=== PATIENT | female | born 1950 | race Caucasian/White ===

== ENCOUNTER 2021-11-13 08:33 | Outpatient (CLI) | payer MEDICARE, MEDICAID, SELFPAY | END 2021-11-13 08:34 | disposition home or self-care (01) | PROVIDERS: Family Provider Family Medicine; PCP Family Medicine; Visit Provider Urology | DX: N20.0 Calculus of kidney (principal); R31.0 Gross hematuria | CPT/HCPCS: G0463; 74018; 99203 ==

== ENCOUNTER 2021-12-31 15:21 | Outpatient (CLI) | payer MEDICARE, MEDICAID, SELFPAY ==
--- NOTE | 2021-12-31 15:00 | CT_ITS ---
WS: [id number] CT ABDOMEN PELVIS TECHNIQUE: Noncontrast CT of the abdomen and contrast-enhanced CT of the abdomen and pelvis with amita nal and sagittal reformatted images. CLINICAL INFORMATION: GROSS HEMATURIA COMPARISON: 019 DLP: 4043.[address] scans at [facility] use at least one of these dose optimization techniques: automated e xposure control; mA and/or kV adjustment per patient size (includes targeted exams where dose is matc hed to clinical indication); or iterative reconstruction. FINDINGS: Bilateral renal cortical atrophy. Atrophic LEFT kidney. Calculus in the RIGHT renal pelvis measuring 8 mm. Mild dilatation of the renal pelvis. Diffuse urothelial enhancement in the RIGHT renal pelvis a nd ureter. Mild RIGHT ureterectasis. Increased soft tissue density in the distal RIGHT ureter suspici ous for TCC.Recommend further evaluation with ureteroscopy. This is new from 2019. This extends over approximately 6 cm. RIGHT calyceal tip calculus measuring 5 mm. No hydronephrosis in the LEFT kidney. Normal LEFT ureter. Diffuse fatty infiltration liver. Mild hepatomegaly. Normal portal vein and splenic vein. Fatty atrop hy of the pancreas. Mild dilatation common bile duct likely physiologic postcholecystectomy. This is unchanged from previous. Small low-attenuation pancreatic lesions ventral body and tail of the pancre as measuring 7-8 mm nonspecific but suspicious IPMN. Dilatation of the pancreatic duct. Splenic arter y calcification. Normal spleen. Lung bases are well aerated. Noncalcified nodule RIGHT lower lobe measuring 4 mm. Adrenal Glands are normal. Postoperative changes gastric sleeve. Normal caliber abdominal aorta. No abdominal or pelvic lymphadenopathy. Normal LEFT renal excretion on the delayed images. Normal sigmoid colon. No evidence of high-grade small or large bowel obstruction. Wide mouth LEFT angy tral abdominal wall hernia similar to previous with herniated bowel. No evidence of obstruction. Sclerosis in both femoral head suspicious for avascular necrosis. CT/CT abdomen pelvis wo/w [id number] IMPRESSION: 1. Increased attenuation diffuse filling defect involving the distal 6 cm RIGH T ureter extending to the UVJ. Diffuse urothelial enhancement in the RIGHT uret er and renal pelvis. Findings suspicious for TCC. Recommend ureteroscopy for fu rther evaluation. 2. 8 mm calculus in the RIGHT renal pelvis. 5 mm RIGHT calyceal tip calculi. 3. Normal LEFT renal parenchymal enhancement and excretion. No hydronephrosis in the LEFT kidney. 4. 4 mm noncalcified RIGHT lower lobe nodule. Recommend 6 month follow-up ches t CT. 5. 7-8 mm low-attenuation lesions in the ventral pancreas nonspecific but susp icious for IPMN. Dilatation pancreatic duct. This can be followed up in [address] abdomen pelvis with contrast or MRI/MRCP without and with contrast.
[2021-12-31] MEDS: iohexol 350 mg/mL 100 mL Btl IV (16:33)
== END 2021-12-31 15:22 | disposition home or self-care (01) ==
LOC: RAD 15:21
PROVIDERS: Family Provider Family Medicine; PCP Family Medicine; Visit Provider Nurse Practitioner Family
DX: R31.9 Hematuria, unspecified (principal); N20.0 Calculus of kidney; R91.1 Solitary pulmonary nodule; K86.89 Other specified diseases of pancreas
CPT/HCPCS: 74178

== ENCOUNTER → 2022-01-01 08:03 | Outpatient (BNVA) | payer MEDICARE, MEDICAID, SELFPAY | PROVIDERS: Family Provider Family Medicine; PCP Family Medicine; Visit Provider Urology | DX: N20.9 Urinary calculus, unspecified (principal); N30.80 Other cystitis without hematuria | CPT/HCPCS: 52000; 87077; 87086; 87186; 88112; 99213 ==

== ENCOUNTER → 2022-03-11 15:29 | Outpatient (BNVA) | payer MEDICARE, MEDICAID, SELFPAY | PROVIDERS: Family Provider Family Medicine; PCP Internal Medicine; Visit Provider Nurse Practitioner Family | DX: N30.80 Other cystitis without hematuria (principal); R31.0 Gross hematuria; N20.9 Urinary calculus, unspecified | CPT/HCPCS: 99213 ==

== ENCOUNTER 2022-06-11 05:39 | Emergency (ER) | payer MEDICARE, MEDICAID, SELFPAY ==
[2022-06-11 05:40] VITALS: BP 188/81; PULSE 62; RESP 18; TEMP 36.6; O2SAT 97; BMI 32.5
--- NOTE | 2022-06-11 06:01 | ECG_ITS ---
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 Measurements Intervals [place] Rate: 63 P: 64 MA: 150 QRS: -16 QRSD: 149 T: 25 QT: 431 QTc: 442 Interpretive Statements SINUS RHYTHM RIGHT BUNDLE BRANCH BLOCK [120+ ms QRS DURATION, UPRIGHT V1, 40+ ms S IN I/aVL/V4/V5/V6] Compared to ECG 01/24/2019 21:31:45 No significant changes Electronically Signed On 06-11-2022 23:27:13 ADMISSIONS ASSISTANT by Didier Merino M.D. [id number]
[2022-06-11 06:06] LABS: Basophils # 0.1 10^3/uL (0.0-0.1); Basophils % 0.7 %; Eosinophils # 0.5 10^3/uL (0.0-0.8); Eosinophils % 7.1 %; Hemoglobin 15.3 g/dL (11.5-15.3); Lymphocytes # 2.4 10^3/uL (0.8-4.8); Lymphocytes % 34.5 %; Mean Corpuscular HGB Conc 30.6 g/dL (30.0-36.0); Mean Corpuscular Hemoglobin 28.7 pg (28.0-34.0); Mean Corpuscular Volume 93.8 fl (81-99); Monocytes # 0.4 10^3/uL (0.2-0.9); Monocytes % 6.2 %; Neutrophils # 3.61 10^3/uL (1.8-7.7); Neutrophils % 51.1 %; Nucleated Red Blood Cells % 0 %; Platelet Count 238 10^3/cmm (130-400); Red Blood Count 5.33 10^6/uL (4.1-5.3); Red Cell Distribution Width 13.9 % (12.1-15.1); White Blood Count 7.1 10^3/uL (4.0-10.0)
[2022-06-11 06:08] VITALS: BP 170/60
[2022-06-11 06:23] LABS: Alanine Aminotransferase 13 U/L (0-33); Albumin Level 3.5 g/dL (3.5-5.2); Alkaline Phosphatase 95 U/L (35-105); Anion Gap 15.1 (5-19); Aspartate Amino Transferase 27 U/L (0-32); Blood Urea Nitrogen 16 mg/dL (8-23); Calcium 9.2 mg/dL (8.5-10.5); Carbon Dioxide 30 mmol/L (22-29); Chloride 101 mmol/L (98-107); Globulin 3.3 g/dL (1.3-4.6); Glucose 109 mg/dL (65-115); Osmolality Calculated 296 mOsm/kg (285-295); Potassium 4.1 mmol/L (3.5-5.1); Sodium 142 mmol/L (136-145); Total Bilirubin 0.3 mg/dL (0.15-1.2); Total Protein 6.8 g/dL (6.6-8.7)
[2022-06-11] MEDS: amlodipine 5 mg Tablet PO (07:05)
--- NOTE | 2022-06-11 07:11 | W.ED.ANXIETY ---
HPI - Anxiety General: Chief Complaint: Anxiety Stated Complaint: anxiety Time Seen by Provider: 06/11/22 05:57 Source: patient History of Present Illness: 72-year-old female presents emergency room via EMS from [facility]. She has a history of CVA is quite anxious. She has permanent left-sided deficits from her previous CVA she was concerned because she felt like she may be having another stroke. She had told the nurses several different things at the intermediate and then here as well. When I went in to talk to her she focused on just some numbness and tingling she had in her right hand. complaint: anxiety Onset (ago): minute(s) Severity: mild Quality: constant Place: home Relieving factors: nothing Exacerbating factors: nothing Associated symptoms: Deny anorexia, chest pain, chills, confusion, diaphoresis, fever(s), headache(s), malaise, nausea, palpitations, short of breath, syncope, vomiting or weakness Review of Systems Const: Denies: fever(s), chills, malaise or diaphoresis ENMT: Denies: throat pain, ear or mastoid pain, nasal discharge or nasal congestion Card: Denies: chest pain, palpitations or syncope Resp: Denies: dyspnea, productive cough or non-productive cough GI: Denies: abdominal pain, nausea or vomiting : Denies: flank pain, difficulty voiding, dysuria, urinary frequency or urinary urgency Skin/Breast: Denies: rash or pruritus Neuro: Denies: headache(s) or confusion PFSH ED PFSH: Medical History Atherosclerotic heart disease of [place] coronary artery without angina pectoris Cerebral infarction, unspecified Chronic embolism 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 Chronic kidney disease Chronic kidney disease, stage 3 unspecified Cystitis cystica Fibromyalgia Hemiplegia Hypothyroidism residential (current) use of anticoagulants Obesity, unspecified Obstructive sleep apnea (adult) (pediatric) Other chronic pain Paralysis left Peripheral vascular disease, unspecified Polyneuropathy, unspecified Urinary tract infection, site not specified Surgical History Hx of section Hx of cholecystectomy Hx of resection of stomach Hx of tonsillectomy Family History Father , AT 78 MRSA (methicillin resistant Staphylococcus aureus) Mother , AT AGE 60 Cancer LUNG Social History Smoking and tobacco status: never smoked Alcohol intake: current Alcohol intake frequency: 0-2 Drinks per Day Marital status: Current occupational status: disabled History of recent travel: No Physical Exam Const: COMMON NORMALS: no acute distress GENERAL APPEARANCE: cooperative and comfortable ORIENTATION/CONSCIOUSNESS: Yes awake, Yes oriented to person, Yes oriented to place and Yes oriented to time HENMT: COMMON NORMALS: normocephalic, atraumatic and hearing grossly normal bilaterally HEAD & SCALP: normocephalic and atraumatic Resp: COMMON NORMALS: normal respiratory effort, No retractions, No use of accessory muscles and clear to auscultation bilaterally AUSCULTATION: clear to auscultation bilaterally Cardio: COMMON NORMALS: regular rate, regular rhythm and No murmurs present (Cardio) RATE: regular rate RHYTHM: regular rhythm GI: COMMON NORMALS: Soft to palpation and No hepatosplenomegaly present AUSCULTATION: Yes normoactive bowel sounds PALPATION: Yes Soft to palpation, No Tenderness to palpation present (GI), No Guarding due to palpation present (GI) and Yes No hepatosplenomegaly present Extremity: COMMON NORMALS: normal to inspection, capillary refill normal, no clubbing, cyanosis or edema, no calf tenderness and no pedal edema Neuro: SENSORIUM/ORIENTATION: Yes oriented to person, Yes oriented to place and Yes oriented to time OTHER: Neurologic deficits from previous stroke but no new neurologic deficits. She has normal function and sensation of the right side. Visual acuity equal bilaterally. Skin: COMMON NORMALS: no rashes or lesions noted GENERAL SKIN EXAM: no rashes or lesions noted Course Vital Signs: Vital signs: Vital Signs Temperature 97.9 F 06/11/22 05:40 Pulse Rate 62 06/11/22 05:40 Respiratory Rate 18 06/11/22 05:40 Blood Pressure 170/60 06/11/22 06:08 Pulse Oximetry 97 06/11/22 05:40 MDM - Anxiety Medical Decision Making Labs and EKG reviewed no acute ST changes on EKG. I did not do a full NIH score because of her previous deficits she would score abnormally. When evaluating her there are no new deficits on her right side. She is awake alert answers questions well actually can give her relatively good history extremely anxious. She has good use of her right arm and leg and sensation is normal visual acuity and visual mccormick are normal. She does have elevated blood pressure and would benefit from better blood pressure control gave her amlodipine here. She has Lasix listed but since she will be transported back to the intermediate we will have them give it so that she does not have to urinate frequently while we are making arrangements for transporting her to the intermediate. Follow-up with her primary care through the intermediate. Medical Records I reviewed the patient's medical records. Lab Data I reviewed the patient's lab results. 06/11/22 05:57 06/11/22 05:57 Laboratory Results WBC 7.1 10^3/uL (4.0-10.0) 06/11/22 05:57 RBC 5.33 10^6/uL (4.1-5.3) H 06/11/22 05:57 Hgb 15.3 g/dL (11.5-15.3) 06/11/22 05:57 Hct 50.0 % (37.0-47.0) H 06/11/22 05:57 MCV 93.8 fl (81-99) 06/11/22 05:57 MCH 28.7 pg (28.0-34.0) 06/11/22 05:57 MCHC 30.6 g/dL (30.0-36.0) 06/11/22 05:57 RDW 13.9 % (12.1-15.1) 06/11/22 05:57 Plt Count 238 10^3/cmm (130-400) 06/11/22 05:57 MPV 10.0 fL (7.4-10.4) 06/11/22 05:57 Neut % (Auto) 51.1 % 06/11/22 05:57 Lymph % (Auto) 34.5 % 06/11/22 05:57 [place] % (Auto) 6.2 % 06/11/22 05:57 Eos % (Auto) 7.1 % 06/11/22 05:57 Baso % (Auto) 0.7 % 06/11/22 05:57 Neut # (Auto) 3.61 10^3/uL (1.8-7.7) 06/11/22 05:57 Lymph # (Auto) 2.4 10^3/uL (0.8-4.8) 06/11/22 05:57 [place] # (Auto) 0.4 10^3/uL (0.2-0.9) 06/11/22 05:57 Eos # (Auto) 0.5 10^3/uL (0.0-0.8) 06/11/22 05:57 Baso # (Auto) 0.1 10^3/uL (0.0-0.1) 06/11/22 05:57 Nucleated RBC % (auto) 0 % 06/11/22 05:57 Nucleated RBCs # 0.0 /100WBC 06/11/22 05:57 Sodium 142 mmol/L (136-145) 06/11/22 05:57 Potassium 4.1 mmol/L (3.5-5.1) 06/11/22 05:57 Chloride 101 mmol/L (98-107) 06/11/22 05:57 Carbon Dioxide 30 mmol/L (22-29) H 06/11/22 05:57 Anion Gap 15.1 (5-19) 06/11/22 05:57 BUN 16 mg/dL (8-23) 06/11/22 05:57 Creatinine 0.9 mg/dL (0.5-0.9) 06/11/22 05:57 GFR Calculation Not Reportable 06/11/22 05:57 Glucose 109 mg/dL (65-115) 06/11/22 05:57 Calculated Osmolality 296 mOsm/kg (285-295) H 06/11/22 05:57 Calcium 9.2 mg/dL (8.5-10.5) 06/11/22 05:57 Total Bilirubin 0.3 mg/dL (0.15-1.2) 06/11/22 05:57 AST 27 U/L (0-32) 06/11/22 05:57 ALT 13 U/L (0-33) 06/11/22 05:57 Alkaline Phosphatase 95 U/L (35-105) 06/11/22 05:57 Total Protein 6.8 g/dL (6.6-8.7) 06/11/22 05:57 Albumin 3.5 g/dL (3.5-5.2) 06/11/22 05:57 Globulin 3.3 g/dL (1.3-4.6) 06/11/22 05:57 Discharge Plan Discharge Patient Disposition: Home Clinical Impression: HTN (hypertension), Acute anxiety, CVA (cerebral vascular accident) Condition: Stable Prescriptions: New amlodipine 5 mg tablet 5 mg PO DAILY Qty: 30 0RF No Action acetaminophen 500 mg capsule 500 mg PO Q4H PRN albuterol sulfate 90 mcg/actuation HFA aerosol inhaler 2 puff inhalation Q4H PRN baclofen 10 mg tablet 10 mg PO TID diclofenac sodium [Arthritis Pain (diclofenac)] 1 % gel 2 g topical QID PRN Rx Instructions: apply to single elbow, wrist or hand; for hand includes palm/fingers/back of hand bisacodyl [Dulcolax (bisacodyl)] 5 mg tablet,delayed release (DR/EC) 5 mg PO DAILY PRN bisacodyl [Dulcolax (bisacodyl)] 10 mg suppository 10 mg AK DAILY PRN Eliquis 5 mg tablet 5 mg PO BID Fleet Enema 19-7 gram/118 mL enema 118 ml AK DAILY PRN hydrocodone-acetaminophen 5-325 mg tablet 1 tab PO Q4H PRN naloxone 0.4 mg/mL solution 0.4 mg SUBCUT Q2M PRN Rx Instructions: NTExceed 10 mg total dose/episode levothyroxine 125 mcg capsule 125 mcg PO DAILY magnesium hydroxide [Milk of Magnesia] 400 mg/5 mL suspension 30 ml PO DAILY PRN nystatin 100,000 unit/gram cream 1 applic topical BID PRN nystatin 100,000 unit/gram powder 1 applic topical BID PRN Thera-Tabs M 27 mg iron-400 mcg tablet PO DAILY triamcinolone acetonide 0.1 % cream 1 applic topical BID PRN cefdinir 300 mg capsule 300 mg PO BID gabapentin 600 mg tablet 600 mg PO TID nitrofurantoin monohyd/m-cryst [Macrobid] 100 mg capsule 100 mg PO BID Qty: 60 1RF Rx Instructions: must administer with a meal/food Discharge Orders: Discharge ED (Routine); Ordered 06/11/22 Ordered By: Tian Johnson Referrals: Fitz Solis DO [Primary Care Provider] - Discharge Diet: Usual diet Discharge Activity: Resume usual activity Patient Instructions: Opioid Safety, Pain Management Activity Restrictions/Additional Instructions: You were seen today for concerns of a stroke. Your blood pressure was elevated however you had no focal neurologic deficits suggestive of stroke at this time he did have deficits from your previous stroke. Recommend that you continue your Lasix and also add amlodipine 5 mg daily. You are given the first dose today in the emergency room. We did not give you your usual dose of Lasix since you were waiting to be transported back to the intermediate they can give you the dose of there. Coding Level of Care Code ED Material Crew Supervisor for Jayla Abdi
== END 2022-06-11 09:15 | disposition home or self-care (01) ==
PROVIDERS: Emergency Medicine; Emergency Provider Family Medicine; PCP Internal Medicine
DX: F41.9 Anxiety disorder, unspecified (principal); I63.9 Cerebral infarction, unspecified; Z79.01 Long term (current) use of anticoagulants; I25.10 Atherosclerotic heart disease of native coronary artery without angina pectoris; N18.30 Chronic kidney disease, stage 3 unspecified; I69.354 Hemiplegia and hemiparesis following cerebral infarction affecting left non-dominant side; I12.9 Hypertensive chronic kidney disease with stage 1 through stage 4 chronic kidney disease, or unspecified chronic kidney disease
CPT/HCPCS: 80053; 85025; 93005; 99284

== ENCOUNTER 2022-09-13 09:50 | Outpatient (CLI) | payer MEDICARE, MEDICAID, SELFPAY ==
--- NOTE | 2022-09-13 10:05 | CT_ITS ---
WS: [id number] CT ABDOMEN PELVIS TECHNIQUE: Noncontrast CT of the abdomen and pelvis with coronal and sagittal reformatted images. CLINICAL INFORMATION: NEPHROLITHIASIS COMPARISON: CT and December 31, 2021 DLP: 995.[address] scans at [facility] use at least one of these dose optimization techniques: automated e xposure control; mA and/or kV adjustment per patient size (includes targeted exams where dose is matc hed to clinical indication); or iterative reconstruction. FINDINGS: Persistent increased soft tissue attenuation involving the distal 6 cm RIGHT ureter extending to the UVJ suspicious for TCC. This was previously described on the prior contrast-enhanced CT urogram. Warner mmend ureteroscopy if this has not been performed. Stable 8 mm calculus in RIGHT renal pelvis with 5 mm RIGHT calyceal tip calculi. This is stable in ap pearance compared to previous. Mild RIGHT hydronephrosis is progressed.Mild inflammatory stranding ab out the RIGHT kidney has increased compared to previous. Pelvocaliectasis appears slightly increased. LEFT renal cortical atrophy. No obstructing LEFT renal or ureteral LEFT calculi. Bladder is normal in appearance. Persistent nodule in the RIGHT lower lobe measuring 4 mm is similar in appearance. Bibas ilar atelectasis. Normal noncontrast liver and spleen. Prior cholecystectomy. Splenic artery calcification. Postoperat pro changes gastric sleeve procedure. Stable small low-attenuation pancreatic lesions ventral body an d tail of the pancreas measuring 7-8 mm nonspecific but suspicious IPMN. Dilatation of the pancreatic duct. Normal caliber abdominal aorta. Stable [place] LEFT ventral abdominal wall hernia similar to previo us with herniated bowel. No evidence of obstruction. Sclerotic changes with humeral head suspicious f or avascular necrosis. CT/CT kidney stone [id number] IMPRESSION: 1. Again seen is the 6 mm soft tissue filling defect in the RIGHT distal urete r suspicious for TCC.Recommend Further evaluation with ureteroscopy if this has not been performed. 2. Slightly progressed mild RIGHT hydronephrosis with increased inflammatory s tranding about the RIGHT kidney. Stable RIGHT renal pelvic and calyceal tip royal culi described above. 3. No hydronephrosis in the LEFT kidney. 4. Stable cystic lesions in the pancreas. 5. Prior cholecystectomy. Prior gastric sleeve procedure. 6. Stable 4 mm nodule RIGHT lower lobe laterally. 7. Stable [place] ventral abdominal wall hernia. No evidence of obstruction.
== END 2022-09-13 09:51 | disposition home or self-care (01) ==
LOC: RAD 09:54
PROVIDERS: PCP Internal Medicine; Visit Provider Urology
DX: N20.0 Calculus of kidney (principal)
CPT/HCPCS: 74176

== ENCOUNTER 2022-11-26 22:19 | Emergency (ER) | payer MEDICARE, MEDICAID, SELFPAY ==
[2022-11-26 22:20] VITALS: BP 104/68; PULSE 63; RESP 18; TEMP 36.9; O2SAT 94; BMI 32.8
--- NOTE | 2022-11-26 22:37 | CTR_ITS ---
PROCEDURE INFORMATION: Exam: CT Head Without Contrast Exam date and time: 11/26/2022 10:50 PM Age: 72 years old Clinical indication: Weakness, extremity; Right; Patient HX: C/O RT upper ext weakness. History of RT sided CVA. ; Additional info: R side weakness TECHNIQUE: Imaging protocol: Computed tomography of the head without contrast. Radiation optimization: All CT scans at this facility use at least one of these dose optimization techniques: automated exposure control; mA and/or kV adjustment per patient size (includes targeted exams where dose is matched to clinical indication); or iterative reconstruction. REPORTING DATA: Count of CT and Cardiac NM exams in prior 12 months: This patient has received 2 known CTs and 0 known cardiac nuclear medicine studies in the 12 months prior to the current study. COMPARISON: CT head wo con* [id number] 01/24/2019 10:08 PM RADIATION DOSE METRICS: Total DLP (mGy-cm): 1063.28 FINDINGS: Brain: Chronic right MCA territory encephalomalacia is unchanged. Chronic encephalomalacia in the left occipital lobe is also unchanged. Chronic lacunar type infarct left caudate nucleus head is unchanged. Involutional changes of the brain are stable. No midline shift or mass effect. No acute infarct or hemorrhage. Cerebral ventricles: Stable ventricular size with mild ex vacuo prominence of the right frontal horn. No ventriculomegaly. Paranasal sinuses: No significant inflammation. No fluid levels. Mastoid air cells: Visualized mastoid air cells are well aerated. Bones/joints: Unremarkable. No acute fracture. Soft tissues: Unremarkable. CT/CT head wo con* [id number] IMPRESSION: No acute intracranial abnormality.
--- NOTE | 2022-11-26 22:38 | ED_ITS ---
HPI - General Adult General: Chief complaint: Neuro Symptoms/Deficit Stated complaint: Weakness Time Seen by Provider: 11/26/22 22:21 Source: patient Mode of arrival: EMS History of Present Illness: 72-year-old female who presents to the emergency room with complaint of right- sided weakness. She has a history of previous strokes and has hemiparesis on the left side. She was awoken from sleep and had difficult time moving her right and her left leg this lasted for a few seconds and then she was able to move at her normal baseline. She became alarmed she was having another stroke. She has not had any further symptoms since. She denies any difficulty with vision or speech. She states her baseline weakness for her left side is unchanged. Her right side is dysfunctional as she was prior to this event. Patient has no recent head trauma. Onset (ago): minute(s) Associated symptoms: Deny chest pain, confusion, cough, diaphoresis, decreased appetite, dyspnea, fevers/chills, headache(s), malaise, nausea, rash, palpitations, seizures, short of breath, syncope, vomiting or weakness Treatments prior to arrival: none Review of Systems Const: Denies: malaise or diaphoresis ENMT: Denies: throat pain, ear or mastoid pain, nasal discharge or nasal congestion Card: Denies: chest pain, palpitations or syncope Resp: Denies: dyspnea GI: Denies: nausea or vomiting : Denies: flank pain, difficulty voiding, dysuria, urinary frequency or urinary urgency Skin/Breast: Denies: rash Neuro: Denies: headache(s) or confusion PFS ED PFSH: Medical History Atherosclerotic heart disease of [place] coronary artery without angina pectoris Cerebral infarction, unspecified Chronic embolism 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 Chronic kidney disease Chronic kidney disease, stage 3 unspecified Cystitis cystica Fibromyalgia Hemiplegia 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 Obesity, unspecified Obstructive sleep apnea (adult) (pediatric) Other chronic pain Paralysis left Peripheral vascular disease, unspecified Polyneuropathy, unspecified Urinary tract infection, site not specified Surgical History Hx of section Hx of cholecystectomy Hx of resection of stomach Hx of tonsillectomy Family History Father , AT 78 MRSA (methicillin resistant Staphylococcus aureus) Mother , AT AGE 60 Cancer LUNG Social History Smoking and tobacco status: never smoked Alcohol intake: current Alcohol intake frequency: 0-2 Drinks per Day Substance/Drug Use: never Marital status: Current occupational status: disabled Physical Exam Const: GENERAL APPEARANCE: cooperative and comfortable ORIENTATION/CONSCIOUSNESS: Yes awake, Yes oriented to person, Yes oriented to place and Yes oriented to time HENMT: COMMON NORMALS: normocephalic, atraumatic and hearing grossly normal bilaterally HEAD & SCALP: normocephalic and atraumatic Resp: COMMON NORMALS: normal respiratory effort, No retractions, No use of accessory muscles and clear to auscultation bilaterally AUSCULTATION: clear to auscultation bilaterally Cardio: COMMON NORMALS: regular rate, regular rhythm and No murmurs present (Cardio) RATE: regular rate RHYTHM: regular rhythm GI: COMMON NORMALS: Soft to palpation and No hepatosplenomegaly present AUSCULTATION: Yes normoactive bowel sounds PALPATION: Yes Soft to palpation, No Tenderness to palpation present (GI), No Guarding due to palpation present (GI) and Yes No hepatosplenomegaly present Extremity: COMMON NORMALS: normal to inspection, capillary refill normal, no clubbing, cyanosis or edema, no calf tenderness and no pedal edema Neuro: SENSORIUM/ORIENTATION: Yes oriented to person, Yes oriented to place and Yes oriented to time OTHER: Patient has normal function of her right side per her report she is able to lift the right arm without drift as well as a right leg normal sensation. Paralysis of the left arm and leg which is her normal baseline. No facial weakness no visual field defects Skin: COMMON NORMALS: no rashes or lesions noted GENERAL SKIN EXAM: no rashes or lesions noted Course Vital Signs: Vital signs: Vital Signs Temperature 98.4 F 11/26/22 22:20 Pulse Rate 63 11/26/22 22:20 Respiratory Rate 18 11/26/22 22:20 Blood Pressure 104/68 11/26/22 22:20 Pulse Oximetry 94 11/26/22 22:20 MDM - General Adult Medical Decision Making No new neurologic deficits. CT does not show any acute changes. Patient has returned to her baseline after very brief time seconds . She is on apixaban at this time [facility] where she can be observed for any change in symptoms. Medical Records I reviewed the patient's medical records. Lab Data I reviewed the patient's lab results. Radiology Impressions Head CT 11/26/22 22:37 IMPRESSION: No acute intracranial abnormality. Discharge Plan Discharge Patient Disposition: Home Clinical Impression: CVA, old, hemiparesis Condition: Stable Prescriptions: No Action acetaminophen 500 mg capsule 500 mg PO Q4H PRN albuterol sulfate 90 mcg/actuation HFA aerosol inhaler 2 puff inhalation Q4H PRN baclofen 10 mg tablet 10 mg PO TID diclofenac sodium [Arthritis Pain (diclofenac)] 1 % gel 2 g topical QID PRN Rx Instructions: apply to single elbow, wrist or hand; for hand includes palm/fingers/back of hand bisacodyl [Dulcolax (bisacodyl)] 5 mg tablet,delayed release (DR/EC) 5 mg PO DAILY PRN bisacodyl [Dulcolax (bisacodyl)] 10 mg suppository 10 mg [place] DAILY PRN Eliquis 5 mg tablet 5 mg PO BID Fleet Enema 19-7 gram/118 mL enema 118 ml [place] DAILY PRN hydrocodone-acetaminophen 5-325 mg tablet 1 tab PO Q4H PRN naloxone 0.4 mg/mL solution 0.4 mg SUBCUT Q2M PRN Rx Instructions: NTExceed 10 mg total dose/episode levothyroxine 125 mcg capsule 125 mcg PO DAILY magnesium hydroxide [Milk of Magnesia] 400 mg/5 mL suspension 30 ml PO DAILY PRN nystatin 100,000 unit/gram cream 1 applic topical BID PRN nystatin 100,000 unit/gram powder 1 applic topical BID PRN Thera-Tabs M 27 mg iron-400 mcg tablet PO DAILY triamcinolone acetonide 0.1 % cream 1 applic topical BID PRN cefdinir 300 mg capsule 300 mg PO BID gabapentin 600 mg tablet 600 mg PO TID nitrofurantoin monohyd/m-cryst [Macrobid] 100 mg capsule 100 mg PO BID Qty: 60 1RF Rx Instructions: must administer with a meal/food amlodipine 5 mg tablet 5 mg PO DAILY Qty: 30 0RF Discharge Orders: Discharge ED (Routine); Ordered 11/26/22 Ordered By: Tian Johnson Referrals: Fitz Solis DO [Primary Care Provider] - Discharge Diet: Usual diet Discharge Activity: Resume usual activity Patient Instructions: Opioid Safety, Pain Management Activity Restrictions/Additional Instructions: You were seen today for concern about right-sided weakness which resolved within a few seconds. Is not persistent when you were seen here CT of the head was negative we will [facility]. Staff can observe at this point. Coding Level of Care Code ED Cotton Weigher for Jayla Abdi
[2022-11-26 22:39] VITALS: BP 104/68; PULSE 63; RESP 18; O2SAT 94
[2022-11-26 23:09] VITALS: BP 131/45; PULSE 63; O2SAT 95
[2022-11-27] VITALS: BP 140/49; PULSE 59; O2SAT 93
[2022-11-27] MEDS: diphenhydrAMINE 25 mg Capsule PO (00:10)
== END 2022-11-27 01:08 | disposition home or self-care (01) ==
PROVIDERS: Emergency Provider Family Medicine; PCP Internal Medicine
DX: I69.354 Hemiplegia and hemiparesis following cerebral infarction affecting left non-dominant side (principal); Z79.01 Long term (current) use of anticoagulants; N18.30 Chronic kidney disease, stage 3 unspecified; I25.10 Atherosclerotic heart disease of native coronary artery without angina pectoris
CPT/HCPCS: 70450; 99284

== ENCOUNTER → 2023-03-02 07:49 | Outpatient (BNVA) | payer MEDICARE, MEDICAID, SELFPAY | PROVIDERS: PCP Internal Medicine; Referring Provider Internal Medicine; Visit Provider Nurse Practitioner Family | DX: B35.4 Tinea corporis (principal); B35.1 Tinea unguium; D22.62 Melanocytic nevi of left upper limb, including shoulder; L57.8 Other skin changes due to chronic exposure to nonionizing radiation; G81.04 Flaccid hemiplegia affecting left nondominant side | CPT/HCPCS: 11102; 99204 ==

== ENCOUNTER 2023-03-16 16:23 | Emergency (ER) | payer MEDICARE, MEDICAID, SELFPAY ==
[2023-03-16] VITALS (8 sets, daily range): BP systolic 117–138; BP diastolic 60–67; PULSE 69–72; RESP 16–22; TEMP 37.2; O2SAT 93–98; BMI 38.0
--- NOTE | 2023-03-16 16:29 | XRR_ITS ---
PROCEDURE INFORMATION: Exam: XR Chest Exam date and time: 03/16/2023 4:33 PM Age: 73 years old Clinical indication: Other: AMS; Additional info: Dyspnea/cough TECHNIQUE: Imaging protocol: Radiologic exam of the chest. Views: 1 view. COMPARISON: CR XR chest 1V [id number] 10/30/2018 9:54 AM FINDINGS: Lungs: There is an indeterminate soft tissue opacity projecting over the left lateral base partially obscured by the cardiac silhouette. Pleural spaces: Unremarkable. No pleural effusion. No pneumothorax. Heart/Mediastinum: Unremarkable. No cardiomegaly. Bones/joints: Unremarkable. XR/XR chest 1V portable [id number] IMPRESSION: Indeterminate left basilar soft tissue opacity.
--- NOTE | 2023-03-16 16:34 | ECG_ITS ---
[facility] Test Date: 2023-03-16 Pat Name: Rupa Hernandez Department: Room: Gender: Female Closer On: : 1950 Requested By: Tian Sanchez Order Number: [id number] Fili MD: Olimpia So M.D. Measurements Intervals [place] Rate: 72 P: 15 [place]: 138 QRS: -43 QRSD: 149 T: -15 QT: 426 QTc: 468 Interpretive Statements SINUS RHYTHM INDETERMINATE AXIS RIGHT BUNDLE BRANCH BLOCK [120+ ms QRS DURATION, UPRIGHT V1, 40+ ms S IN I/aVL/V4/V5/V6] POSSIBLE ANTERIOR MYOCARDIAL INFARCTION , OF INDETERMINATE AGE [30 ms Q WAVE IN V3/V4, OR R < 0.2 mV IN V4] Compared to ECG 06/11/2022 06:09:56 Indeterminate axis now present Myocardial infarct finding now present Electronically Signed On 03-17-2023 0:43:36 [employer] OPERATIONS SPECIALIST by Olimpia So M.D. [email or web address]
--- NOTE | 2023-03-16 16:44 | ED_ITS ---
Documented by User: Tian Johnson DO 03/17/23 09:29 HPI - General Adult General: Chief complaint: Altered Mental Status Stated complaint: AMS Time Seen by Provider: 03/16/23 16:25 Source: patient Mode of arrival: ambulatory History of Present Illness: 73-year-old female presents to the emergency room from [facility] with complaint of altered mental status. She had a surgery yesterday for nephrolithiasis. She answers all questions appropriately she is able to identify and explained that she had a stroke 3 years ago. She denies any chest pain any shortness of breath. No abdominal pain no vomiting no diarrhea. Onset (ago): minute(s) Relieving factors: none Exacerbating factors: none Associated symptoms: Deny chest pain, confusion, cough, diaphoresis, decreased appetite, dyspnea, fevers/chills, headache(s), malaise, nausea, rash, palpitations, seizures, short of breath, syncope, vomiting or weakness Treatments prior to arrival: none Review of Systems Const: Denies: fever(s), chills, malaise or diaphoresis Card: Denies: chest pain, palpitations or syncope Resp: Denies: dyspnea GI: Denies: abdominal pain, nausea or vomiting : Denies: dysuria, urinary frequency or urinary urgency Musc: Denies: neck pain or back pain Skin/Breast: Denies: rash Neuro: Denies: headache(s) or confusion PFSH ED PFSH: Medical History Atherosclerotic heart disease of [place] coronary artery without angina pectoris Cerebral infarction, unspecified Chronic embolism 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 Chronic kidney disease Chronic kidney disease, stage 3 unspecified Cystitis cystica Fibromyalgia Hemiplegia Hypothyroidism alf (current) use of anticoagulants Obesity, unspecified Obstructive sleep apnea (adult) (pediatric) Other chronic pain Paralysis left Peripheral vascular disease, unspecified Polyneuropathy, unspecified Urinary tract infection, site not specified Surgical History Hx of section Hx of cholecystectomy Hx of resection of stomach Hx of tonsillectomy Family History Father , AT 78 MRSA (methicillin resistant Staphylococcus aureus) Mother , AT AGE 60 Cancer LUNG Social History Smoking and tobacco/nicotine status: never used tobacco/nicotine Alcohol intake: current Alcohol intake frequency: 0-2 Drinks per Day Substance/Drug Use: never Marital status: Current occupational status: disabled Physical Exam Const: GENERAL APPEARANCE: cooperative and comfortable ORIENTATION/CONSC IOUSNESS: Yes awake HENMT: COMMON NORMALS: normocephalic, atraumatic and hearing grossly normal bilaterally HEAD & SCALP: normocephalic and atraumatic Resp: COMMON NORMALS: normal respiratory effort, No retractions, No use of accessory muscles and clear to auscultation bilaterally AUSCULTATION: clear to auscultation bilaterally Cardio: COMMON NORMALS: regular rate, regular rhythm and No murmurs present (Cardio) RATE: regular rate RHYTHM: regular rhythm GI: COMMON NORMALS: Soft to palpation and No hepatosplenomegaly present AUSCULTATION: Yes normoactive bowel sounds PALPATION: Yes Soft to palpation, No Tenderness to palpation present (GI), No Guarding due to palpation present (GI) and Yes No hepatosplenomegaly present Extremity: OTHER: Left-sided weakness from previous stroke contracture of the hand and foot on the left side slightly decreased sensation Skin: COMMON NORMALS: no rashes or lesions noted GENERAL SKIN EXAM: no rashes or lesions noted Course Vital Signs: Vital signs: Vital Signs Temperature 98.9 F 03/16/23 20:56 Pulse Rate 70 03/16/23 21:23 Respiratory Rate 16 03/16/23 21:23 Blood Pressure 138/65 03/16/23 21:23 Pulse Oximetry 96 03/16/23 21:23 Oxygen Delivery Me thod Nasal Cannula, CP AP 03/16/23 20:37 Oxygen Flow Rate 2 03/16/23 20:37 MDM - General Adult Medical Decision Making Care signed out to Dr. Jasso at change of shift. See final notes for diagnosis and disposition. Lab work was obtained which showed a white count of 12.5, BUN of 1.8, chest x- ray indeterminate left basilar soft tissue opacity, head CT was negative, UA showed positive for urinary tract infection. Patient will be given Cipro in ER and discharged on Cipro. Patient to follow-up with her PCP within the next 7 to 10 days or sooner as needed. Lab Data 03/16/23 17:00 03/16/23 17:00 Radiology Impressions Chest X-Ray 03/16/23 16:29 IMPRESSION: Indeterminate left basilar soft tissue opacity. Head CT 03/16/23 17:48 IMPRESSION: Stable exam, no acute intracranial abnormality. Laboratory Results WBC 12.52 10^3/uL (3.29-11.43) H 03/16/23 17:00 RBC 5.16 10^6/uL (3.85-5.65) 03/16/23 17:00 Hgb 14.90 g/dL (11.27-16.99) 03/16/23 17:00 Hct 47.7 % (36-47) H 03/16/23 17:00 MCV 92.4 fl (85-98) 03/16/23 17:00 MCH 28.9 pg (27-33) 03/16/23 17:00 MCHC 31.2 g/dL (30-55) 03/16/23 17:00 RDW 14.6 % (12.1-15.1) 03/16/23 17:00 Plt Count 224 10^3/cmm (157-399) 03/16/23 17:00 MPV 10.2 fL (7.4-10.4) 03/16/23 17:00 Neut % (Auto) 77.2 % 03/16/23 17:00 Lymph % (Auto) 11.2 % 03/16/23 17:00 [place] % (Auto) 10.3 % 03/16/23 17:00 Eos % (Auto) 0.3 % 03/16/23 17:00 Baso % (Auto) 0.5 % 03/16/23 17:00 Neut # (Auto) 9.67 10^3/uL (1.8-7.7) H 03/16/23 17:00 Lymph # (Auto) 1.4 10^3/uL (0.8-4.8) 03/16/23 17:00 [place] # (Auto) 1.3 10^3/uL (0.2-0.9) H 03/16/23 17:00 Eos # (Auto) 0.0 10^3/uL (0.0-0.8) 03/16/23 17:00 Baso # (Auto) 0.1 10^3/uL (0.0-0.1) 03/16/23 17:00 Nucleated RBC % (auto) 0 % 03/16/23 17:00 Nucleated RBCs # 0.0 /100WBC 03/16/23 17:00 Sodium 140 mmol/L (136-145) 03/16/23 17:00 Potassium 4.5 mmol/L (3.5-5.1) 03/16/23 17:00 Chloride 98 mmol/L (98-107) 03/16/23 17:00 Carbon Dioxide 29 mmol/L (22-29) 03/16/23 17:00 Anion Gap 17.5 (5-19) 03/16/23 17:00 BUN 17 mg/dL (8-23) 03/16/23 17:00 Creatinine 1.8 mg/dL (0.5-0.9) H 03/16/23 17:00 GFR Calculation Not Reportable 03/16/23 17:00 Glucose 163 mg/dL (65-115) H 03/16/23 17:00 Calculated Osmolality 295 mOsm/kg (285-295) 03/16/23 17:00 Calcium 9.0 mg/dL (8.5-10.5) 03/16/23 17:00 Magnesium 2.0 mg/dL (1.7-2.3) 03/16/23 17:00 Total Bilirubin 0.4 mg/dL (0.15-1.2) 03/16/23 17:00 AST 31 U/L (0-32) 03/16/23 17:00 ALT 16 U/L (0-33) 03/16/23 17:00 Alkaline Phosphatase 92 U/L (35-105) 03/16/23 17:00 Total Protein 6.2 g/dL (6.6-8.7) L 03/16/23 17:00 Albumin 3.3 g/dL (3.5-5.2) L 03/16/23 17:00 Globulin 2.9 g/dL (1.3-4.6) 03/16/23 17:00 Urine Color Dark yellow (Yellow) 03/16/23 19:44 Urine Appearance Cloudy (CLEAR) A 03/16/23 19:44 Urine pH 5 (5-7) 03/16/23 19:44 Ur Specific [place] 1.025 (1.005-1.030) 03/16/23 19:44 Urine Protein 2+ (Negative) H 03/16/23 19:44 Urine Glucose (UA) Norm (Normal) 03/16/23 19:44 Urine Ketones 1+ (Negative) H 03/16/23 19:44 Urine Blood 3+ (Negative) H 03/16/23 19:44 Urine Nitrate Negative (Negative) 03/16/23 19:44 Urine Bilirubin 1+ (Negative) H 03/16/23 19:44 Urine Urobilinogen Norm mg/dL (Negative) 03/16/23 19:44 Ur Leukocyte Esterase 2+ (Negative) H 03/16/23 19:44 Urine RBC 25-40 /hpf (0-2) H 03/16/23 19:44 Urine WBC Too numerous to cnt /hpf (0-5) H 03/16/23 19:44 Ur Squamous Epith Cells 5-10 /hpf (0-5) H 03/16/23 19:44 Amorphous Sediment Not Reportable 03/16/23 19:44 Urine Bacteria 2+ /hpf (NONE) H 03/16/23 19:44 Urine Mucus 1+ /hpf 03/16/23 19:44 Discharge Plan Discharge Patient Disposition: Home Clinical Impression: Urinary tract infection Qualifiers: Urinary tract infection type: acute cystitis Hematuria presence: with hematuria Qualified Code(s): N30.01 - Acute cystitis with hematuria Condition: Stable Prescriptions: New ciprofloxacin HCl 500 mg tablet 500 mg PO Q12H Qty: 20 0RF No Action acetaminophen 500 mg capsule 500 mg PO Q4H PRN albuterol sulfate 90 mcg/actuation HFA aerosol inhaler 2 puff inhalation Q4H PRN baclofen 10 mg tablet 10 mg PO TID diclofenac sodium [Arthritis Pain (diclofenac)] 1 % gel 2 g topical QID PRN Rx Instructions: apply to single elbow, wrist or hand; for hand includes palm/fingers/back of hand bisacodyl [Dulcolax (bisacodyl)] 5 mg tablet,delayed release (DR/EC) 5 mg PO DAILY PRN bisacodyl [Dulcolax (bisacodyl)] 10 mg suppository 10 mg MO DAILY PRN Eliquis 5 mg tablet 5 mg PO BID Fleet Enema 19-7 gram/118 mL enema 118 ml MO DAILY PRN hydrocodone-acetaminophen 5-325 mg tablet 1 tab PO Q4H PRN naloxone 0.4 mg/mL solution 0.4 mg SUBCUT Q2M PRN Rx Instructions: NTExceed 10 mg total dose/episode levothyroxine 125 mcg capsule 125 mcg PO DAILY magnesium hydroxide [Milk of Magnesia] 400 mg/5 mL suspension 30 ml PO DAILY PRN nystatin 100,000 unit/gram cream 1 applic topical BID PRN nystatin 100,000 unit/gram powder 1 applic topical BID PRN Thera-Tabs M 27 mg iron-400 mcg tablet PO DAILY triamcinolone acetonide 0.1 % cream 1 applic topical BID PRN cefdinir 300 mg capsule 300 mg PO BID gabapentin 600 mg tablet 600 mg PO TID nitrofurantoin monohyd/m-cryst [Macrobid] 100 mg capsule 100 mg PO BID Qty: 60 1RF Rx Instructions: must administer with a meal/food amlodipine 5 mg tablet 5 mg PO DAILY Qty: 30 0RF Discharge Orders: Discharge ED (Routine); Ordered 03/16/23 Ordered By: Manolo Jasso Referrals: Fitz Solis DO [Primary Care Provider] - Patient Instructions: Urinary Tract Infection - Women Activity Restrictions/Additional Instructions: Please take all your antibiotics as directed, please push plenty of fluids. Please follow-up with your family practice doctor within the next 7 to 10 days as needed for further evaluation and treatment. Coding Level of Care Code ED Wastewater Treatment Engineer for Chg Fwd Documented by User: Manolo Jasso DO 03/16/23 20:21 HPI - General Adult General: Chief complaint: Altered Mental Status Stated complaint: AMS Time Seen by Provider: 03/16/23 16:25 PFSH ED PFSH: Medical History Atherosclerotic heart disease of [place] coronary artery without angina pectoris Cerebral infarction, unspecified Chronic embolism 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 Chronic kidney disease Chronic kidney disease, stage 3 unspecified Cystitis cystica Fibromyalgia Hemiplegia Hypothyroidism 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 Obesity, unspecified Obstructive sleep apnea (adult) (pediatric) Other chronic pain Paralysis left Peripheral vascular disease, unspecified Polyneuropathy, unspecified Urinary tract infection, site not specified Surgical History Hx of section Hx of cholecystectomy Hx of resection of stomach Hx of tonsillectomy Family History Father , AT 78 MRSA (methicillin resistant Staphylococcus aureus) Mother , AT AGE 60 Cancer LUNG Social History Smoking and tobacco/nicotine status: never used tobacco/nicotine Alcohol intake: current Alcohol intake frequency: 0-2 Drinks per Day Substance/Drug Use: never Marital status: Current occupational status: disabled Course Vital Signs: Vital signs: Vital Signs Temperature 98.9 F 03/16/23 20:56 Pulse Rate 70 03/16/23 21:23 Respiratory Rate 16 03/16/23 21:23 Blood Pressure 138/65 03/16/23 21:23 Pulse Oximetry 96 03/16/23 21:23 Oxygen Delivery Me thod Nasal Cannula, CP AP 03/16/23 20:37 Oxygen Flow Rate 2 03/16/23 20:37 MDM - General Adult Medical Decision Making Lab work was obtained which showed a white count of 12.5, BUN of 1.8, chest x- ray indeterminate left basilar soft tissue opacity, head CT was negative, UA showed positive for urinary tract infection. Patient will be given Cipro in ER and discharged on Cipro. Patient to follow-up with her PCP within the next 7 to 10 days or sooner as needed. Differential Diagnosis Altered mental status, UTI, Medical Records I reviewed the patient's medical records. Lab Data I reviewed the patient's lab results. 03/16/23 17:00 03/16/23 17:00 Radiology Impressions Chest X-Ray 03/16/23 16:29 IMPRESSION: Indeterminate left basilar soft tissue opacity. Head CT 03/16/23 17:48 IMPRESSION: Stable exam, no acute intracranial abnormality. Laboratory Results WBC 12.52 10^3/uL (3.29-11.43) H 03/16/23 17:00 RBC 5.16 10^6/uL (3.85-5.65) 03/16/23 17:00 Hgb 14.90 g/dL (11.27-16.99) 03/16/23 17:00 Hct 47.7 % (36-47) H 03/16/23 17:00 MCV 92.4 fl (85-98) 03/16/23 17:00 MCH 28.9 pg (27-33) 03/16/23 17:00 MCHC 31.2 g/dL (30-55) 03/16/23 17:00 RDW 14.6 % (12.1-15.1) 03/16/23 17:00 Plt Count 224 10^3/cmm (157-399) 03/16/23 17:00 MPV 10.2 fL (7.4-10.4) 03/16/23 17:00 Neut % (Auto) 77.2 % 03/16/23 17:00 Lymph % (Auto) 11.2 % 03/16/23 17:00 [place] % (Auto) 10.3 % 03/16/23 17:00 Eos % (Auto) 0.3 % 03/16/23 17:00 Baso % (Auto) 0.5 % 03/16/23 17:00 Neut # (Auto) 9.67 10^3/uL (1.8-7.7) H 03/16/23 17:00 Lymph # (Auto) 1.4 10^3/uL (0.8-4.8) 03/16/23 17:00 [place] # (Auto) 1.3 10^3/uL (0.2-0.9) H 03/16/23 17:00 Eos # (Auto) 0.0 10^3/uL (0.0-0.8) 03/16/23 17:00 Baso # (Auto) 0.1 10^3/uL (0.0-0.1) 03/16/23 17:00 Nucleated RBC % (auto) 0 % 03/16/23 17:00 Nucleated RBCs # 0.0 /100WBC 03/16/23 17:00 Sodium 140 mmol/L (136-145) 03/16/23 17:00 Potassium 4.5 mmol/L (3.5-5.1) 03/16/23 17:00 Chloride 98 mmol/L (98-107) 03/16/23 17:00 Carbon Dioxide 29 mmol/L (22-29) 03/16/23 17:00 Anion Gap 17.5 (5-19) 03/16/23 17:00 BUN 17 mg/dL (8-23) 03/16/23 17:00 Creatinine 1.8 mg/dL (0.5-0.9) H 03/16/23 17:00 GFR Calculation Not Reportable 03/16/23 17:00 Glucose 163 mg/dL (65-115) H 03/16/23 17:00 Calculated Osmolality 295 mOsm/kg (285-295) 03/16/23 17:00 Calcium 9.0 mg/dL (8.5-10.5) 03/16/23 17:00 Magnesium 2.0 mg/dL (1.7-2.3) 03/16/23 17:00 Total Bilirubin 0.4 mg/dL (0.15-1.2) 03/16/23 17:00 AST 31 U/L (0-32) 03/16/23 17:00 ALT 16 U/L (0-33) 03/16/23 17:00 Alkaline Phosphatase 92 U/L (35-105) 03/16/23 17:00 Total Protein 6.2 g/dL (6.6-8.7) L 03/16/23 17:00 Albumin 3.3 g/dL (3.5-5.2) L 03/16/23 17:00 Globulin 2.9 g/dL (1.3-4.6) 03/16/23 17:00 Urine Color Dark yellow (Yellow) 03/16/23 19:44 Urine Appearance Cloudy (CLEAR) A 03/16/23 19:44 Urine pH 5 (5-7) 03/16/23 19:44 Ur Specific [place] 1.025 (1.005-1.030) 03/16/23 19:44 Urine Protein 2+ (Negative) H 03/16/23 19:44 Urine Glucose (UA) Norm (Normal) 03/16/23 19:44 Urine Ketones 1+ (Negative) H 03/16/23 19:44 Urine Blood 3+ (Negative) H 03/16/23 19:44 Urine Nitrate Negative (Negative) 03/16/23 19:44 Urine Bilirubin 1+ (Negative) H 03/16/23 19:44 Urine Urobilinogen Norm mg/dL (Negative) 03/16/23 19:44 Ur Leukocyte Esterase 2+ (Negative) H 03/16/23 19:44 Urine RBC 25-40 /hpf (0-2) H 03/16/23 19:44 Urine WBC Too numerous to cnt /hpf (0-5) H 03/16/23 19:44 Ur Squamous Epith Cells 5-10 /hpf (0-5) H 03/16/23 19:44 Amorphous Sediment Not Reportable 03/16/23 19:44 Urine Bacteria 2+ /hpf (NONE) H 03/16/23 19:44 Urine Mucus 1+ /hpf 03/16/23 19:44 All radiology interpretation(s) finalized by discharge Discharge Plan Discharge Patient Disposition: Home Clinical Impression: Urinary tract infection Qualifiers: Urinary tract infection type: acute cystitis Hematuria presence: with hematuria Qualified Code(s): N30.01 - Acute cystitis with hematuria Condition: Stable Prescriptions: New ciprofloxacin HCl 500 mg tablet 500 mg PO Q12H Qty: 20 0RF No Action acetaminophen 500 mg capsule 500 mg PO Q4H PRN albuterol sulfate 90 mcg/actuation HFA aerosol inhaler 2 puff inhalation Q4H PRN baclofen 10 mg tablet 10 mg PO TID diclofenac sodium [Arthritis Pain (diclofenac)] 1 % gel 2 g topical QID PRN Rx Instructions: apply to single elbow, wrist or hand; for hand includes palm/fingers/back of hand bisacodyl [Dulcolax (bisacodyl)] 5 mg tablet,delayed release (DR/EC) 5 mg PO DAILY PRN bisacodyl [Dulcolax (bisacodyl)] 10 mg suppository 10 mg MO DAILY PRN Eliquis 5 mg tablet 5 mg PO BID Fleet Enema 19-7 gram/118 mL enema 118 ml MO DAILY PRN hydrocodone-acetaminophen 5-325 mg tablet 1 tab PO Q4H PRN naloxone 0.4 mg/mL solution 0.4 mg SUBCUT Q2M PRN Rx Instructions: NTExceed 10 mg total dose/episode levothyroxine 125 mcg capsule 125 mcg PO DAILY magnesium hydroxide [Milk of Magnesia] 400 mg/5 mL suspension 30 ml PO DAILY PRN nystatin 100,000 unit/gram cream 1 applic topical BID PRN nystatin 100,000 unit/gram powder 1 applic topical BID PRN Thera-Tabs M 27 mg iron-400 mcg tablet PO DAILY triamcinolone acetonide 0.1 % cream 1 applic topical BID PRN cefdinir 300 mg capsule 300 mg PO BID gabapentin 600 mg tablet 600 mg PO TID nitrofurantoin monohyd/m-cryst [Macrobid] 100 mg capsule 100 mg PO BID Qty: 60 1RF Rx Instructions: must administer with a meal/food amlodipine 5 mg tablet 5 mg PO DAILY Qty: 30 0RF Discharge Orders: Discharge ED (Routine); Ordered 03/16/23 Ordered By: Manolo Jasso Referrals: Fitz Solis DO [Primary Care Provider] - Patient Instructions: Urinary Tract Infection - Women Activity Restrictions/Additional Instructions: Please take all your antibiotics as directed, please push plenty of fluids. Please follow-up with your family practice doctor within the next 7 to 10 days as needed for further evaluation and treatment. Coding Level of Care Code ED Wastewater Treatment Engineer for Jayla Abdi
[2023-03-16 17:12] LABS: Basophils # 0.1 10^3/uL (0.0-0.1); Basophils % 0.5 %; Eosinophils % 0.3 %; Hematocrit 47.7 % (36-47); Lymphocytes # 1.4 10^3/uL (0.8-4.8); Lymphocytes % 11.2 %; Mean Corpuscular HGB Conc 31.2 g/dL (30-55); Mean Corpuscular Hemoglobin 28.9 pg (27-33); Mean Corpuscular Volume 92.4 fl (85-98); Mean Platelet Volume 10.2 fL (7.4-10.4); Monocytes # 1.3 10^3/uL (0.2-0.9); Monocytes % 10.3 %; Neutrophils # 9.67 10^3/uL (1.8-7.7); Neutrophils % 77.2 %; Nucleated Red Blood Cells % 0 %; Platelet Count 224 10^3/cmm (157-399); Red Blood Count 5.16 10^6/uL (3.85-5.65); Red Cell Distribution Width 14.6 % (12.1-15.1); White Blood Count 12.52 10^3/uL (3.29-11.43)
--- NOTE | 2023-03-16 17:48 | CTR_ITS ---
PROCEDURE INFORMATION: Exam: CT Head Without Contrast Exam date and time: 03/16/2023 6:28 PM Age: 73 years old Clinical indication: Altered mental status/memory loss; Additional info: AMS TECHNIQUE: Imaging protocol: Computed tomography of the head without contrast. Radiation optimization: All CT scans at this facility use at least one of these dose optimization techniques: automated exposure control; mA and/or kV adjustment per patient size (includes targeted exams where dose is matched to clinical indication); or iterative reconstruction. REPORTING DATA: Count of CT and Cardiac NM exams in prior 12 months: This patient has received 2 known CTs and 0 known cardiac nuclear medicine studies in the 12 months prior to the current study. COMPARISON: CT head wo con* [id number] 11/26/2022 10:50 PM RADIATION DOSE METRICS: Total DLP (mGy-cm): 1082 FINDINGS: Brain: No hemorrhage. No edema. Areas of encephalomalacia noted within the right frontal, temporal, and parietal lobes as well as the left occipital lobe corresponding to old infarcts. No mass effect. Cerebral ventricles: No ventriculomegaly. Paranasal sinuses: Visualized sinuses are unremarkable. No fluid levels. Mastoid air cells: Visualized mastoid air cells are well aerated. Bones/joints: Unremarkable. No acute fracture. Soft tissues: Unremarkable. CT/CT head wo con* [id number] IMPRESSION: Stable exam, no acute intracranial abnormality.
[2023-03-16 18:23] LABS: Alanine Aminotransferase 16 U/L (0-33); Albumin Level 3.3 g/dL (3.5-5.2); Alkaline Phosphatase 92 U/L (35-105); Anion Gap 17.5 (5-19); Aspartate Amino Transferase 31 U/L (0-32); Blood Urea Nitrogen 17 mg/dL (8-23); Carbon Dioxide 29 mmol/L (22-29); Chloride 98 mmol/L (98-107); Globulin 2.9 g/dL (1.3-4.6); Glucose 163 mg/dL (65-115); Osmolality Calculated 295 mOsm/kg (285-295); Potassium 4.5 mmol/L (3.5-5.1); Sodium 140 mmol/L (136-145); Total Bilirubin 0.4 mg/dL (0.15-1.2); Total Protein 6.2 g/dL (6.6-8.7)
[2023-03-16 20:09] LABS: Blood Urine 3+ (Negative); Glucose Urine UA Norm (Normal); Ketones Urine 1+ (Negative); Nitrate Urine Negative (Negative); Protein Urine 2+ (Negative); Specific Gravity, Urine 1.025 (1.005-1.030); Urine Appearance Cloudy (CLEAR); Urine Color Dark Yellow (Yellow); pH Urine 5 (5-7)
[2023-03-16 20:10] LABS: Add Urine Microscopic? YES; Bilirubin Urine 1+ (Negative); Leukocyte Esterase Urine 2+ (Negative); Urobilinogen Urine Norm (Negative)
[2023-03-16 20:12] LABS: Bacteria Urine 2+ /hpf; Mucus Urine 1+ /hpf; RBC Urine 25-40 /hpf (0-2); WBC Urine TOO NUMEROUS TO CNT /hpf (0-5)
[2023-03-16 20:13] LABS: Add Urine Culture? Yes
[2023-03-16] MEDS: ciprofloxacin 500 mg Tablet PO (20:33)
== END 2023-03-16 22:43 | disposition home or self-care (01) ==
PROVIDERS: Emergency Provider Family Medicine; PCP Internal Medicine
DX: N30.01 Acute cystitis with hematuria (principal); Z79.01 Long term (current) use of anticoagulants; N18.30 Chronic kidney disease, stage 3 unspecified; Z87.440 Personal history of urinary (tract) infections; Z86.73 Personal history of transient ischemic attack (TIA), and cerebral infarction without residual deficits
CPT/HCPCS: 70450; 71045; 80053; 81001; 83735; 85025; 87040; 87077; 87086; 87186; 87205; 93005; 99285

== ENCOUNTER 2023-03-23 02:35 | Emergency (ER) | payer MEDICARE, MEDICAID, SELFPAY ==
[2023-03-23 02:36] VITALS: BP 137/65; PULSE 79; RESP 20; TEMP 36.7; O2SAT 91
--- NOTE | 2023-03-23 02:37 | ECG_ITS ---
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 Measurements Intervals [place] Rate: 81 P: 2 DC: 139 QRS: -26 QRSD: 146 T: -12 QT: 407 QTc: 473 Interpretive Statements SINUS RHYTHM INDETERMINATE AXIS RIGHT BUNDLE BRANCH BLOCK [120+ ms QRS DURATION, UPRIGHT V1, 40+ ms S IN I/aVL/V4/V5/V6] INTERPRETATION BASED ON A DEFAULT AGE OF 40 YEARS Compared to ECG 03/16/2023 16:34:43 Myocardial infarct finding no longer present Electronically Signed On 03-23-2023 15:10:58 PHYSICAL EDUCATION DEPARTMENT CHAIR by Humberto Long M.D. [email or web address]
--- NOTE | 2023-03-23 02:40 | XRR_ITS ---
PROCEDURE INFORMATION: Exam: XR Chest Exam date and time: 03/23/2023 2:48 AM Age: 73 years old Clinical indication: Angina; Additional info: Cp TECHNIQUE: Imaging protocol: Radiologic exam of the chest. Views: 1 view. COMPARISON: CR XR chest 1V portable [id number] 03/16/2023 4:33 PM FINDINGS: Lungs: Unremarkable. No consolidation. Pleural spaces: Unremarkable. No pleural effusion. No pneumothorax. Heart/Mediastinum: Unremarkable. No cardiomegaly. Bones/joints: Unremarkable. XR/XR chest 1V portable [id number] IMPRESSION: No acute findings.
--- NOTE | 2023-03-23 02:40 | W.ED.CHESTPA ---
HPI - Chest Pain General: Chief Complaint: Chest Pain Stated Complaint: CP Time Seen by Provider: 03/23/23 02:39 Source: patient and EMS Mode of arrival: EMS Limitations: no limitations History of Present Illness: 73-year-old female is here from assisted with chest pain states started having a sharp pain in the center of her chest roughly 30 minutes ago received nitro and aspirin in route states she still having pain she denies any shortness of breath. She had a history of urinary tract infections also history of stroke is bedbound from her stroke. She denies any cough or fever or shortness of breath. Associated symptoms: Deny abdominal pain, dyspnea, fever(s), nausea or vomiting Review of Systems Const: Denies: fever(s), chills, body aches or change in appetite ENMT: Denies: throat pain or dental pain Card: Reports: chest pain Resp: Denies: dyspnea GI: Denies: abdominal pain, nausea, vomiting or diarrhea : Denies: dysuria Musc: Denies: neck pain or back pain Skin/Breast: Denies: rash Neuro: Denies: headache(s) PFSH ED PFSH: Medical History Atherosclerotic heart disease of [place] coronary artery without angina pectoris Cerebral infarction, unspecified Chronic embolism 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 Chronic kidney disease Chronic kidney disease, stage 3 unspecified Cystitis cystica Fibromyalgia Hemiplegia 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 Obesity, unspecified Obstructive sleep apnea (adult) (pediatric) Other chronic pain Paralysis left Peripheral vascular disease, unspecified Polyneuropathy, unspecified Urinary tract infection, site not specified Surgical History Hx of section Hx of cholecystectomy Hx of resection of stomach Hx of tonsillectomy Family History Father , AT 78 MRSA (methicillin resistant Staphylococcus aureus) Mother , AT AGE 60 Cancer LUNG Social History Smoking and tobacco/nicotine status: never used tobacco/nicotine Alcohol intake: current Alcohol intake frequency: 0-2 Drinks per Day Substance/Drug Use: never Marital status: Current occupational status: disabled Physical Exam Const: COMMON NORMALS: patient oriented x3 HENMT: COMMON NORMALS: normocephalic and atraumatic HEAD & SCALP: normocephalic and atraumatic Eye: COMMON NORMALS: Equal, round and reactive pupils present and EOMs intact bilaterally PUPIL: Yes Equal, round and reactive pupils present Neck/C-Spine: COMMON NORMALS: full ROM and supple Chest: COMMONS NORMALS: normal inspection of the chest and normal palpation of entire chest wall Resp: COMMON NORMALS: normal respiratory effort, No retractions, No use of accessory muscles and clear to auscultation bilaterally AUSCULTATION: clear to auscultation bilaterally Cardio: COMMON NORMALS: regular rate, regular rhythm and No murmurs present (Cardio) RATE: regular rate RHYTHM: regular rhythm GI: COMMON NORMALS: Normal to inspection, nondistended, normoactive bowel sounds present, Soft to palpation, non-tender and no masses PALPATION: Yes Soft to palpation Extremity: COMMON NORMALS: normal to inspection Neuro: COMMON NORMALS: patient oriented x3 Psych: COMMON NORMALS: mental status grossly normal, Normal thought process present and cooperative THOUGHT PROCESS: Normal thought process present Skin: COMMON NORMALS: no rashes or lesions noted and no wounds GENERAL SKIN EXAM: no rashes or lesions noted Course Vital Signs: Vital signs: Vital Signs Temperature 98.0 F 03/23/23 02:36 Pulse Rate 68 03/23/23 04:43 Respiratory Rate 12 03/23/23 04:43 Blood Pressure 144/86 03/23/23 04:43 Pulse Oximetry 95 03/23/23 04:43 Oxygen Delivery Me thod Nasal Cannula 03/23/23 04:43 Oxygen Flow Rate 4 03/23/23 04:43 MDM - Chest Pain Medical Decision Making Patient presents for chest pains atypical in nature EKG his troponins here are normal no signs of acute coronary syndrome D-dimer is negative no signs of pulmonary embolism or aortic dissection patient is follow-up PCP and return if worsening. Medical Records I reviewed the patient's medical records. Lab Data I reviewed the patient's lab results. 03/23/23 02:27 03/23/23 02:27 Radiology Impressions Chest X-Ray 03/23/23 02:40 IMPRESSION: No acute findings. Laboratory Results WBC 7.46 10^3/uL (3.29-11.43) 03/23/23 02:27 RBC 4.55 10^6/uL (3.85-5.65) 03/23/23 02:27 Hgb 12.90 g/dL (11.27-16.99) 03/23/23 02:27 Hct 41.6 % (36-47) 03/23/23 02:27 MCV 91.4 fl (85-98) 03/23/23 02:27 MCH 28.4 pg (27-33) 03/23/23 02:27 MCHC 31.0 g/dL (30-55) 03/23/23 02:27 RDW 14.7 % (12.1-15.1) 03/23/23 02:27 Plt Count 260 10^3/cmm (157-399) 03/23/23 02:27 MPV 10.7 fL (7.4-10.4) H 03/23/23 02:27 Neut % (Auto) 73.0 % 03/23/23 02:27 Lymph % (Auto) 16.2 % 03/23/23 02:27 [place] % (Auto) 9.2 % 03/23/23 02:27 Eos % (Auto) 0.4 % 03/23/23 02:27 Baso % (Auto) 0.4 % 03/23/23 02:27 Neut # (Auto) 5.44 10^3/uL (1.8-7.7) 03/23/23 02:27 Lymph # (Auto) 1.2 10^3/uL (0.8-4.8) 03/23/23 02:27 [place] # (Auto) 0.7 10^3/uL (0.2-0.9) 03/23/23 02:27 Eos # (Auto) 0.0 10^3/uL (0.0-0.8) 03/23/23 02:27 Baso # (Auto) 0.0 10^3/uL (0.0-0.1) 03/23/23 02:27 Nucleated RBC % (auto) 0 % 03/23/23 02:27 Nucleated RBCs # 0.0 /100WBC 03/23/23 02:27 PT 19.50 SECONDS (12.1-14.9) H 03/23/23 02:27 INR 1.59 (0.8-1.2) H 03/23/23 02:27 D-Dimer 0.52 ug/mLFEU (0-0.59) 03/23/23 02:27 Sodium 140 mmol/L (136-145) 03/23/23 02:27 Potassium 4.2 mmol/L (3.5-5.1) 03/23/23 02:27 Chloride 98 mmol/L (98-107) 03/23/23 02:27 Carbon Dioxide 31 mmol/L (22-29) H 03/23/23 02:27 Anion Gap 15.2 (5-19) 03/23/23 02:27 BUN 9 mg/dL (8-23) 03/23/23 02:27 Creatinine 1.1 mg/dL (0.5-0.9) H 03/23/23 02:27 GFR Calculation Not Reportable 03/23/23 02:27 Glucose 107 mg/dL (65-115) 03/23/23 02:27 Calculated Osmolality 289 mOsm/kg (285-295) 03/23/23 02:27 Calcium 8.8 mg/dL (8.5-10.5) 03/23/23 02:27 Total Bilirubin 0.3 mg/dL (0.15-1.2) 03/23/23 02:27 AST 18 U/L (0-32) 03/23/23 02:27 ALT 11 U/L (0-33) 03/23/23 02:27 Alkaline Phosphatase 95 U/L (35-105) 03/23/23 02:27 Troponin T Baseline 19 ng/L (0-10) H 03/23/23 02:27 Troponin T 120 Minute 19.96 ng/L (0-10) H 03/23/23 04:28 Delta Troponin T 0.96 ABS# (0-10) 03/23/23 04:28 NT-Pro-B Natriuret Pep 1466 pg/mL (0-125) H 03/23/23 02:27 Total Protein 5.5 g/dL (6.6-8.7) L 03/23/23 02:27 Albumin 2.9 g/dL (3.5-5.2) L 03/23/23 02:27 Globulin 2.6 g/dL (1.3-4.6) 03/23/23 02:27 Lipase 19 U/L (13-60) 03/23/23 02:27 All radiology interpretation(s) finalized by discharge EKG Data EKG 1: I personally reviewed and interpreted this EKG as follows: EKG interpretation date: 03/23/23 EKG interpretation time: 02:37 Interpretation: nsr hr [address] elevation rbbb qrs 146 qtc 444 Discharge Plan Discharge Patient Disposition: Home Clinical Impression: Chest pain Condition: Stable Prescriptions: No Action acetaminophen 500 mg capsule 500 mg PO Q4H PRN albuterol sulfate 90 mcg/actuation HFA aerosol inhaler 2 puff inhalation Q4H PRN baclofen 10 mg tablet 10 mg PO TID diclofenac sodium [Arthritis Pain (diclofenac)] 1 % gel 2 g topical QID PRN Rx Instructions: apply to single elbow, wrist or hand; for hand includes palm/fingers/back of hand bisacodyl [Dulcolax (bisacodyl)] 5 mg tablet,delayed release (DR/EC) 5 mg PO DAILY PRN bisacodyl [Dulcolax (bisacodyl)] 10 mg suppository 10 mg SD DAILY PRN Eliquis 5 mg tablet 5 mg PO BID Fleet Enema 19-7 gram/118 mL enema 118 ml SD DAILY PRN hydrocodone-acetaminophen 5-325 mg tablet 1 tab PO Q4H PRN naloxone 0.4 mg/mL solution 0.4 mg SUBCUT Q2M PRN Rx Instructions: NTExceed 10 mg total dose/episode levothyroxine 125 mcg capsule 125 mcg PO DAILY magnesium hydroxide [Milk of Magnesia] 400 mg/5 mL suspension 30 ml PO DAILY PRN nystatin 100,000 unit/gram cream 1 applic topical BID PRN nystatin 100,000 unit/gram powder 1 applic topical BID PRN Thera-Tabs M 27 mg iron-400 mcg tablet PO DAILY triamcinolone acetonide 0.1 % cream 1 applic topical BID PRN cefdinir 300 mg capsule 300 mg PO BID gabapentin 600 mg tablet 600 mg PO TID nitrofurantoin monohyd/m-cryst [Macrobid] 100 mg capsule 100 mg PO BID Qty: 60 1RF Rx Instructions: must administer with a meal/food ciprofloxacin HCl 500 mg tablet 500 mg PO Q12H Qty: 20 0RF amlodipine 5 mg tablet 5 mg PO DAILY Qty: 30 0RF Discharge Orders: Discharge ED (Routine); Ordered 03/23/23 Ordered By: Augusta Carrera Referrals: Fitz Solis DO [Primary Care Provider] - 1-3 days Discharge Diet: Advance as tolerated Discharge Activity: Resume usual activity Patient Instructions: Chest Pain (ED) Coding Level of Care Code 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
[2023-03-23 02:55] LABS: Basophils % 0.4 %; Eosinophils % 0.4 %; Hematocrit 41.6 % (36-47); Lymphocytes # 1.2 10^3/uL (0.8-4.8); Lymphocytes % 16.2 %; Mean Corpuscular Hemoglobin 28.4 pg (27-33); Mean Corpuscular Volume 91.4 fl (85-98); Mean Platelet Volume 10.7 fL (7.4-10.4); Monocytes # 0.7 10^3/uL (0.2-0.9); Monocytes % 9.2 %; Neutrophils # 5.44 10^3/uL (1.8-7.7); Nucleated Red Blood Cells % 0 %; Platelet Count 260 10^3/cmm (157-399); Red Blood Count 4.55 10^6/uL (3.85-5.65); Red Cell Distribution Width 14.7 % (12.1-15.1); White Blood Count 7.46 10^3/uL (3.29-11.43)
[2023-03-23 03:00] VITALS: BP 127/85; PULSE 77; RESP 18; O2SAT 99
[2023-03-23 03:24] LABS: Troponin(5th) Baseline 19 ng/L (0-10)
[2023-03-23 03:27] LABS: Alanine Aminotransferase 11 U/L (0-33); Albumin Level 2.9 g/dL (3.5-5.2); Alkaline Phosphatase 95 U/L (35-105); Aspartate Amino Transferase 18 U/L (0-32); Blood Urea Nitrogen 9 mg/dL (8-23); Calcium 8.8 mg/dL (8.5-10.5); Carbon Dioxide 31 mmol/L (22-29); Chloride 98 mmol/L (98-107); Globulin 2.6 g/dL (1.3-4.6); Glucose 107 mg/dL (65-115); Lipase 19 U/L (13-60); Osmolality Calculated 289 mOsm/kg (285-295); Sodium 140 mmol/L (136-145); Total Bilirubin 0.3 mg/dL (0.15-1.2); Total Protein 5.5 g/dL (6.6-8.7)
[2023-03-23 03:34] LABS: Anion Gap 15.2 (5-19); Potassium 4.2 mmol/L (3.5-5.1)
[2023-03-23 03:36] LABS: INR 1.59 (0.8-1.2)
[2023-03-23 03:45] LABS: D Dimer 0.52 ug/mLFEU (0-0.59)
[2023-03-23 04:04] LABS: NT Pro B Type Natriuretic Pept 1466 pg/mL (0-125)
--- NOTE | 2023-03-23 04:26 | ECG_ITS ---
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 Measurements Intervals [place] Rate: 74 P: 15 MT: 139 QRS: -22 QRSD: 147 T: -8 QT: 426 QTc: 473 Interpretive Statements SINUS RHYTHM BORDERLINE LEFT AXIS DEVIATION [QRS AXIS < -20] RIGHT BUNDLE BRANCH BLOCK [120+ ms QRS DURATION, UPRIGHT V1, 40+ ms S IN I/aVL/V4/V5/V6] Compared to ECG 03/16/2023 16:34:43 Indeterminate axis no longer present Myocardial infarct finding no longer present Electronically Signed On 03-23-2023 15:12:23 SUPERVISOR REACTOR FUELING by Humberto Long M.D. [id number]
[2023-03-23 04:43] VITALS: BP 144/86; PULSE 68; RESP 12; O2SAT 95
[2023-03-23 04:50] LABS: Troponin 5 2HR 19.96 ng/L (0-10); Troponin 5 2HR Delta 0.96 ABS# (0-10)
--- NOTE | 2023-03-23 05:06 | PC.NURSE ---
this nurse called report to [facility] jail. [facility]era took call.
[2023-03-23 05:21] VITALS: BP 144/85; PULSE 68; RESP 13; O2SAT 93
[2023-03-23 06:21] VITALS: BP 115/52; PULSE 62; RESP 17; O2SAT 98
--- NOTE | 2023-03-23 06:23 | PC.NURSE ---
pt currently resting with eyes closed in ER room12, respirations even and unlabored on 3L oxygen NC; oxygen sat 98%.
[2023-03-23 08:57] VITALS: PULSE 75; O2SAT 98
== END 2023-03-23 08:59 | disposition home or self-care (01) ==
PROVIDERS: Emergency Provider Emergency Medicine; PCP Internal Medicine
DX: R07.9 Chest pain, unspecified (principal); Z79.01 Long term (current) use of anticoagulants; I25.10 Atherosclerotic heart disease of native coronary artery without angina pectoris; N18.30 Chronic kidney disease, stage 3 unspecified; I73.9 Peripheral vascular disease, unspecified; I69.354 Hemiplegia and hemiparesis following cerebral infarction affecting left non-dominant side
CPT/HCPCS: 71045; 80053; 83690; 83880; 84484; 85025; 85378; 85610; 93005; 99285

== ENCOUNTER 2023-04-03 23:39 | Emergency (ER) | payer MEDICARE, MEDICAID, SELFPAY ==
[2023-04-03 23:40] VITALS: BP 150/70; PULSE 74; RESP 22; O2SAT 100; BMI 31.9
--- NOTE | 2023-04-03 23:40 | XRR_ITS ---
PROCEDURE INFORMATION: Exam: XR Chest Exam date and time: 04/04/2023 12:30 AM Age: 73 years old Clinical indication: Other: Poss CVA; Prior surgery; Surgery date: 6+ months; Surgery type: Gastric resection. Gb. Patient HX: EMS arrival from [facility] for possible stroke. Numbness to RT lower extremity and vision loss to RT eye. History of RT sided CVA. TECHNIQUE: Imaging protocol: Radiologic exam of the chest. Views: 1 view. COMPARISON: CR (CHEST, ) 03/23/2023 2:48 AM FINDINGS: Tubes, catheters and devices: EKG monitoring leads overlie the thoracic wall. Lungs: There is no consolidation. Pleural spaces: No pleural effusion or pneumothorax. Heart/Mediastinum: The heart and mediastinum are normal in size. Bones/joints: Unremarkable. XR/XR chest 1V portable [id number] IMPRESSION: No acute findings.
--- NOTE | 2023-04-03 23:40 | ECG_ITS ---
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 Measurements Intervals [place] Rate: 75 P: 72 IA: 143 QRS: -62 QRSD: 152 T: 61 QT: 411 QTc: 462 Interpretive Statements SINUS RHYTHM RIGHT BUNDLE BRANCH BLOCK [120+ ms QRS DURATION, UPRIGHT V1, 40+ ms S IN I/aVL/V4/V5/V6]L Nonspecific ST changes. Compared to ECG 03/23/2023 04:26:19 No significant change. Electronically Signed On 04-04-2023 9:13:17 SENIOR TELECOMMUNICATIONS CONSULTANT by Ryan Whiteside M.D. [id number]
--- NOTE | 2023-04-03 23:40 | CTR_ITS ---
PROCEDURE INFORMATION: Exam: CT Head Without Contrast Exam date and time: 04/03/2023 11:41 PM Age: 73 years old Clinical indication: Stroke-like symptoms; Visual disturbance; RT lower extremity weakness; Additional info: EMS arrival from [facility] for possible stroke. Numbness to RT lower extremity and vision loss to RT eye. History of RT sided CVA. TECHNIQUE: Imaging protocol: Computed tomography of the head without contrast. Radiation optimization: All CT scans at this facility use at least one of these dose optimization techniques: automated exposure control; mA and/or kV adjustment per patient size (includes targeted exams where dose is matched to clinical indication); or iterative reconstruction. Other technique: STROKE PROTOCOL was implemented. REPORTING DATA: Count of CT and Cardiac NM exams in prior 12 months: This patient has received 3 known CTs and 0 known cardiac nuclear medicine studies in the 12 months prior to the current study. COMPARISON: CT head wo con* [id number] 03/16/2023 6:28 PM RADIATION DOSE METRICS: Total DLP (mGy-cm): 1087.78 FINDINGS: Brain: There is no evidence of intracranial hemorrhage. No mass effect or midline shift. There are mild confluent periventricular hypodensities consistent with chronic microischemic changes of white matter. Encephalomalacia in the distribution of the right middle cerebral artery consistent with a remote infarct. Encephalomalacia in the left occipital lobe consistent with remote infarction. No evidence of acute infarction or territorial edema. Cerebral ventricles: Mild volume loss and commensurate ventricular dilatation. There is ex vacuo dilatation of the right lateral ventricle. Paranasal sinuses: There are air-fluid levels in the left sphenoid sinus, right frontal and left maxillary sinuses as well as bilateral ethmoid air cells. There is mucoperiosteal thickening of the right maxillary sinus. There is debris in the left frontal sinus. Mastoid air cells: The visualized mastoid air cells are well aerated. Bones/joints: No acute fracture. Soft tissues: Unremarkable. CT/CT head thrombolytic [id number] IMPRESSION: 1. No evidence of acute infarction or acute hemorrhage. 2. Encephalomalacia, consistent with remote infarcts in the distribution of the right middle cerebral artery and in the left occipital lobe. 3. Pansinusitis with air-fluid levels. ASSESSMENT: ASPECTS ([place] Stroke Program Early CT Score) is 10.
--- NOTE | 2023-04-03 23:40 | CTR_ITS ---
PROCEDURE INFORMATION: Exam: CTA Head With Contrast, Arteriography Exam date and time: 04/03/2023 11:53 PM Age: 73 years old Clinical indication: Stroke-like symptoms; Visual disturbance; RT lower extremity weakness; Additional info: CVA TECHNIQUE: Imaging protocol: Computed tomographic angiography of the head with contrast. Exam focused on the arteries. 3D rendering (Not supervised by radiologist): MIP and/or 3D reconstructed images were created by the technologist. Radiation optimization: All CT scans at this facility use at least one of these dose optimization techniques: automated exposure control; mA and/or kV adjustment per patient size (includes targeted exams where dose is matched to clinical indication); or iterative reconstruction. Contrast material: OMNI 350; Contrast volume: 100 ml; Contrast route: INTRAVENOUS (IV); REPORTING DATA: Count of CT and Cardiac NM exams in prior 12 months: This patient has received 3 known CTs and 0 known cardiac nuclear medicine studies in the 12 months prior to the current study. COMPARISON: CT head thrombolytic [id number] 04/03/2023 11:41 PM RADIATION DOSE METRICS: Total DLP (mGy-cm): 481.02 FINDINGS: ANTERIOR CIRCULATION: Right internal carotid artery: Intracranial segment is patent with no significant stenosis. No aneurysm. Right middle cerebral artery: Moderate M1 segment stenosis. No aneurysm. Right anterior cerebral artery: No occlusion. Moderate tandem stenosis of the mid segment. No aneurysm. Left internal carotid artery: Intracranial segment is patent with no significant stenosis. No aneurysm. Left middle cerebral artery: No occlusion or significant stenosis. No aneurysm. Left anterior cerebral artery: A1 segment occlusion of unknown acuity with a patent anterior communicating artery. Moderate mid and distal segment stenoses. No aneurysm. POSTERIOR CIRCULATION: Right vertebral artery: No occlusion or significant stenosis. No aneurysm. Left vertebral artery: No occlusion or significant stenosis. No aneurysm. Basilar artery: No occlusion or significant stenosis. No aneurysm. Right posterior cerebral artery: Mild P1 stenosis. No aneurysm. Patent right posterior communicating artery. Left posterior cerebral artery: Moderate P1 stenosis. P4 occlusion leading to the area of occipital encephalomalacia. No aneurysm. Patent left posterior communicating artery. Brain: No definite mass, mass effect, or midline shift. Encephalomalacia in the distribution of the right middle cerebral artery. Encephalomalacia in left occipital lobe. Cerebral ventricles: No ventriculomegaly. Paranasal sinuses: Pansinusitis with air-fluid levels. Bones/joints: Unremarkable. No acute fracture. Soft tissues: Unremarkable. PROCEDURE INFORMATION: Exam: CTA Neck With Contrast Exam date and time: 04/03/2023 11:53 PM Age: 73 years old Clinical indication: Stroke-like symptoms; Visual disturbance; RT lower extremity weakness; Additional info: CVA TECHNIQUE: Imaging protocol: Computed tomographic angiography of the neck with contrast. Exam focused on the cervical segments of the vasculature. 3D rendering (Not supervised by radiologist): MIP and/or 3D reconstructed images were created by the technologist. Radiation optimization: All CT scans at this facility use at least one of these dose optimization techniques: automated exposure control; mA and/or kV adjustment per patient size (includes targeted exams where dose is matched to clinical indication); or iterative reconstruction. Contrast material: OMNI 350; Contrast volume: 100 ml; Contrast route: INTRAVENOUS (IV); REPORTING DATA: Count of CT and Cardiac NM exams in prior 12 months: This patient has received 3 known CTs and 0 known cardiac nuclear medicine studies in the 12 months prior to the current study. COMPARISON: CT head thrombolytic [id number] 04/03/2023 11:41 PM RADIATION DOSE METRICS: Total DLP (mGy-cm): 481.02 FINDINGS: Right common carotid artery: No significant stenosis. No dissection or occlusion. Right internal carotid artery: Atheromatous calcification at the origin of the extracranial internal carotid artery with moderate 58% stenosis. No dissection or occlusion. Right external carotid artery: Severe stenosis of the origin. Left common carotid artery: No significant stenosis. No dissection or occlusion. Left internal carotid artery: Atheromatous calcification at the origin of the extracranial internal carotid artery with mild stenosis. No dissection or occlusion. Left external carotid artery: Mild stenosis of the origin. Right vertebral artery: Severe proximal stenosis. No dissection or occlusion. Left vertebral artery: Moderate stenosis at the origin. No dissection or occlusion. Soft tissues: No significant soft tissue swelling. Bones/joints: No acute fracture. CT/CT angio headneck* [id number] IMPRESSION: 1. Left A1 segment occlusion of unknown acuity with a patent, prominent anterior communicating artery. Both anterior cerebral arteries are patent and both demonstrate stenoses in the mid and distal segments. Moderate and severe tandem stenosis of right anterior cerebral artery. 2. Mild right P1 segment stenosis. 3. Moderate left P1 segment stenosis and P4 segment occlusion leading to the area of encephalomalacia in the left occipital lobe, likely chronic. IMPRESSION: 1. Atheromatous plaque at the origin of the right extracranial ICA with moderate 58% the stenosis by NASCET criteria. 2. Atheromatous plaque at the origin of the left extracranial ICA with mild stenosis by NASCET criteria. 3. Severe proximal stenosis of the dominant right vertebral artery. 4. Moderate proximal stenosis of the non dominant left vertebral artery. THIS REPORT CONTAINS FINDINGS THAT MAY BE CRITICAL TO PATIENT CARE. The findings were verbally communicated via telephone conference with MOISE MCGRATH at 1:26 AM BOARDING HOUSE MANAGER on 04/04/2023. The findings were acknowledged and understood. REFERENCES: NASCET CRITERIA. The degree of stenosis in the cervical segment of the internal carotid artery is based on NASCET criteria. Normal is no stenosis. Mild is less than 50% stenosis. Moderate is 50-69% stenosis. Severe is 70% to 99% stenosis. Total occlusion is no detectable patent lumen.
[2023-04-03 23:56] LABS: Glucose Point of Care 141 mg/dL (70-110)
[2023-04-04 00:06] LABS: Basophils % 0.5 %; Eosinophils # 0.4 10^3/uL (0.0-0.8); Eosinophils % 5.6 %; Hematocrit 43.7 % (36-47); Lymphocytes # 1.8 10^3/uL (0.8-4.8); Mean Corpuscular HGB Conc 30.2 g/dL (30-55); Mean Corpuscular Hemoglobin 28.3 pg (27-33); Mean Corpuscular Volume 93.8 fl (85-98); Mean Platelet Volume 10.9 fL (7.4-10.4); Monocytes # 0.8 10^3/uL (0.2-0.9); Monocytes % 10.1 %; Neutrophils % 60.5 %; Nucleated Red Blood Cells % 0 %; Platelet Count 276 10^3/cmm (157-399); Red Blood Count 4.66 10^6/uL (3.85-5.65); White Blood Count 7.92 10^3/uL (3.29-11.43)
[2023-04-04] MEDS: iohexol 350 mg/mL 500 mL Btl (per mL) IV (00:13)
[2023-04-04 00:18] LABS: INR 1.53 (0.8-1.2)
[2023-04-04 00:19] LABS: Partial Thromboplastin Time 35.1 SECONDS (23.9-36.7)
[2023-04-04 00:28] LABS: Alanine Aminotransferase 26 U/L (0-33); Albumin Level 3.3 g/dL (3.5-5.2); Alkaline Phosphatase 109 U/L (35-105); Blood Urea Nitrogen 10 mg/dL (8-23); Calcium 8.8 mg/dL (8.5-10.5); Carbon Dioxide 33 mmol/L (22-29); Chloride 96 mmol/L (98-107); Globulin 2.7 g/dL (1.3-4.6); Glucose 134 mg/dL (65-115); Osmolality Calculated 285 mOsm/kg (285-295); Sodium 137 mmol/L (136-145); Total Bilirubin 0.3 mg/dL (0.15-1.2)
[2023-04-04 00:29] LABS: Aspartate Amino Transferase 32 U/L (0-32)
[2023-04-04 00:30] VITALS: BP 128/67; BP 150/70; PULSE 75; RESP 22; O2SAT 100
[2023-04-04 01:18] LABS: Amphetamines Screen Urine Negative (Negative); Barbiturates Screen Urine Negative (Negative); Benzodiazepines Screen Urine Negative (Negative); Cocaine Screen Urine Negative (Negative); Opiate Screen Urine Positive (Negative); PCP Screen Urine Negative (Negative); THC Screen Urine Negative (Negative)
[2023-04-04 01:23] LABS: Add Urine Culture? Yes; Add Urine Microscopic? YES; Bilirubin Urine Neg (Negative); Blood Urine 3+ (Negative); Glucose Urine UA Norm (Normal); Ketones Urine 1+ (Negative); Leukocyte Esterase Urine 2+ (Negative); Nitrate Urine Negative (Negative); Protein Urine 1+ (Negative); RBC Urine TOO NUMEROUS TO CNT /hpf (0-2); Specific Gravity, Urine 1.005 (1.005-1.030); Urine Appearance Cloudy (CLEAR); Urine Color Yellow (Yellow); Urobilinogen Urine Neg (Negative); WBC Urine TOO NUMEROUS TO CNT /hpf (0-5); pH Urine 5 (5-7)
--- NOTE | 2023-04-04 01:45 | W.ED.NEUROSD ---
HPI - Neuro Symptoms/Deficit General: Chief Complaint: Neuro Symptoms/Deficit Stated Complaint: STROKE Time Seen by Provider: 04/03/23 23:39 Source: patient and EMS Mode of arrival: EMS Limitations: no limitations History of Present Illness: 73-year-old female had a history of stroke in the past she is in the senior care she has left-sided deficits from her previous stroke states tonight she felt like she is having blurry vision along with some right-sided numbness. She states those symptoms have improved greatly since being transported denies any chest pain. Associated symptoms: Deny chest pain, headache(s), nausea or vomiting Review of Systems Const: Denies: fever(s), chills, body aches or change in appetite Eyes: Denies: blurry vision or eye discomfort ENMT: Denies: throat pain or dental pain Card: Denies: chest pain Resp: Denies: dyspnea GI: Denies: abdominal pain, nausea, vomiting or diarrhea Musc: Denies: neck pain or back pain Skin/Breast: Denies: rash Neuro: Reports: weakness in extremities; Denies: headache(s) PFSH ED PFSH: Medical History Atherosclerotic heart disease of [place] coronary artery without angina pectoris Cerebral infarction, unspecified Chronic embolism 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 Chronic kidney disease Chronic kidney disease, stage 3 unspecified Cystitis cystica Fibromyalgia Hemiplegia Hypothyroidism halfway (current) use of anticoagulants Obesity, unspecified Obstructive sleep apnea (adult) (pediatric) Other chronic pain Paralysis left Peripheral vascular disease, unspecified Polyneuropathy, unspecified Urinary tract infection, site not specified Surgical History Hx of section Hx of cholecystectomy Hx of resection of stomach Hx of tonsillectomy Family History Father , AT 78 MRSA (methicillin resistant Staphylococcus aureus) Mother , AT AGE 60 Cancer LUNG Social History Smoking and tobacco/nicotine status: never used tobacco/nicotine Alcohol intake: current Alcohol intake frequency: 0-2 Drinks per Day Substance/Drug Use: never Marital status: Current occupational status: disabled Physical Exam Const: COMMON NORMALS: no acute distress, patient oriented x3 and healthy appearing HENMT: COMMON NORMALS: normocephalic and atraumatic HEAD & SCALP: normocephalic and atraumatic Eye: COMMON NORMALS: Equal, round and reactive pupils present and EOMs intact bilaterally PUPIL: Yes Equal, round and reactive pupils present Neck/C-Spine: COMMON NORMALS: full ROM and supple Chest: COMMONS NORMALS: normal inspection of the chest and normal palpation of entire chest wall Resp: COMMON NORMALS: normal respiratory effort, No retractions, No use of accessory muscles and clear to auscultation bilaterally AUSCULTATION: clear to auscultation bilaterally Cardio: COMMON NORMALS: regular rate, regular rhythm and No murmurs present (Cardio) RATE: regular rate RHYTHM: regular rhythm GI: COMMON NORMALS: Normal to inspection, nondistended, normoactive bowel sounds present, Soft to palpation, non-tender and no masses PALPATION: Yes Soft to palpation Extremity: COMMON NORMALS: normal to inspection and full ROM Neuro: COMMON NORMALS: patient oriented x3, moves all extremities and no focal motor deficits Psych: COMMON NORMALS: mental status grossly normal, Normal thought process present and cooperative THOUGHT PROCESS: Normal thought process present Skin: COMMON NORMALS: no rashes or lesions noted and no wounds GENERAL SKIN EXAM: no rashes or lesions noted Course Vital Signs: Vital signs: Vital Signs Pulse Rate 75 04/04/23 00:30 Respiratory Rate 22 H 04/04/23 00:30 Blood Pressure 128/67 04/04/23 00:30 Pulse Oximetry 100 04/04/23 00:30 Oxygen Delivery Me thod Nasal Cannula 04/04/23 00:30 Oxygen Flow Rate 2 04/04/23 00:30 MDM - Neuro Symptoms/Deficit Medical Decision Making Patient presents here with a possible TIA her symptoms of completely resolved here CTA showed a bunch of old findings I did offer admission she states she feels much improved and wants to go back to the senior care she is stable for discharge Medical Records I reviewed the patient's medical records. Lab Data I reviewed the patient's lab results. 04/04/23 00:00 04/04/23 00:00 Radiology Impressions Chest X-Ray 04/03/23 23:40 IMPRESSION: No acute findings. Head CT 04/03/23 23:40 IMPRESSION: 1. No evidence of acute infarction or acute hemorrhage. 2. Encephalomalacia, consistent with remote infarcts in the distribution of the right middle cerebral artery and in the left occipital lobe. 3. Pansinusitis with air-fluid levels. ASSESSMENT: ASPECTS ([place]arin Stroke Program Early CT Score) is 10. Head/Neck CTA 04/03/23 23:40 IMPRESSION: 1. Left A1 segment occlusion of unknown acuity with a patent, prominent anterior communicating artery. Both anterior cerebral arteries are patent and both demonstrate stenoses in the mid and distal segments. Moderate and severe tandem stenosis of right anterior cerebral artery. 2. Mild right P1 segment stenosis. 3. Moderate left P1 segment stenosis and P4 segment occlusion leading to the area of encephalomalacia in the left occipital lobe, likely chronic. IMPRESSION: 1. Atheromatous plaque at the origin of the right extracranial ICA with moderate 58% the stenosis by NASCET criteria. 2. Atheromatous plaque at the origin of the left extracranial ICA with mild stenosis by NASCET criteria. 3. Severe proximal stenosis of the dominant right vertebral artery. 4. Moderate proximal stenosis of the non dominant left vertebral artery. THIS REPORT CONTAINS FINDINGS THAT MAY BE CRITICAL TO PATIENT CARE. The findings were verbally communicated via telephone conference with MOISE MCGRATH at 1:26 AM OPEN TENTER OPERATOR on 04/04/2023. The findings were acknowledged and understood. REFERENCES: NASCET CRITERIA. The degree of stenosis in the cervical segment of the internal carotid artery is based on NASCET criteria. Normal is no stenosis. Mild is less than 50% stenosis. Moderate is 50-69% stenosis. Severe is 70% to 99% stenosis. Total occlusion is no detectable patent lumen. Laboratory Results WBC 7.92 10^3/uL (3.29-11.43) 04/04/23 00:00 RBC 4.66 10^6/uL (3.85-5.65) 04/04/23 00:00 Hgb 13.20 g/dL (11.27-16.99) 04/04/23 00:00 Hct 43.7 % (36-47) 04/04/23 00:00 MCV 93.8 fl (85-98) 04/04/23 00:00 MCH 28.3 pg (27-33) 04/04/23 00:00 MCHC 30.2 g/dL (30-55) 04/04/23 00:00 RDW 14.0 % (12.1-15.1) 04/04/23 00:00 Plt Count 276 10^3/cmm (157-399) 04/04/23 00:00 MPV 10.9 fL (7.4-10.4) H 04/04/23 00:00 Neut % (Auto) 60.5 % 04/04/23 00:00 Lymph % (Auto) 23.0 % 04/04/23 00:00 Gem % (Auto) 10.1 % 04/04/23 00:00 Eos % (Auto) 5.6 % 04/04/23 00:00 Baso % (Auto) 0.5 % 04/04/23 00:00 Neut # (Auto) 4.80 10^3/uL (1.8-7.7) 04/04/23 00:00 Lymph # (Auto) 1.8 10^3/uL (0.8-4.8) 04/04/23 00:00 Gem # (Auto) 0.8 10^3/uL (0.2-0.9) 04/04/23 00:00 Eos # (Auto) 0.4 10^3/uL (0.0-0.8) 04/04/23 00:00 Baso # (Auto) 0.0 10^3/uL (0.0-0.1) 04/04/23 00:00 Nucleated RBC % (auto) 0 % 04/04/23 00:00 Nucleated RBCs # 0.0 /100WBC 04/04/23 00:00 PT 18.90 SECONDS (12.1-14.9) H 04/04/23 00:00 INR 1.53 (0.8-1.2) H 04/04/23 00:00 APTT 35.1 SECONDS (23.9-36.7) 04/04/23 00:00 Sodium 137 mmol/L (136-145) 04/04/23 00:00 Potassium 4.0 mmol/L (3.5-5.1) 04/04/23 00:00 Chloride 96 mmol/L (98-107) L 04/04/23 00:00 Carbon Dioxide 33 mmol/L (22-29) H 04/04/23 00:00 Anion Gap 12.0 (5-19) 04/04/23 00:00 BUN 10 mg/dL (8-23) 04/04/23 00:00 Creatinine 1.0 mg/dL (0.5-0.9) H 04/04/23 00:00 GFR Calculation Not Reportable 04/04/23 00:00 Glucose 134 mg/dL (65-115) H 04/04/23 00:00 POC Glucose 141 mg/dL (70-110) H 04/03/23 23:44 Calculated Osmolality 285 mOsm/kg (285-295) 04/04/23 00:00 Calcium 8.8 mg/dL (8.5-10.5) 04/04/23 00:00 Total Bilirubin 0.3 mg/dL (0.15-1.2) 04/04/23 00:00 AST 32 U/L (0-32) 04/04/23 00:00 ALT 26 U/L (0-33) 04/04/23 00:00 Alkaline Phosphatase 109 U/L (35-105) H 04/04/23 00:00 Total Protein 6.0 g/dL (6.6-8.7) L 04/04/23 00:00 Albumin 3.3 g/dL (3.5-5.2) L 04/04/23 00:00 Globulin 2.7 g/dL (1.3-4.6) 04/04/23 00:00 Urine Color Yellow (Yellow) 04/04/23 00:59 Urine Appearance Cloudy (CLEAR) A 04/04/23 00:59 Urine pH 5 (5-7) 04/04/23 00:59 Ur Specific [place] 1.005 (1.005-1.030) 04/04/23 00:59 Urine Protein 1+ (Negative) H 04/04/23 00:59 Urine Glucose (UA) Norm (Normal) 04/04/23 00:59 Urine Ketones 1+ (Negative) H 04/04/23 00:59 Urine Blood 3+ (Negative) H 04/04/23 00:59 Urine Nitrate Negative (Negative) 04/04/23 00:59 Urine Bilirubin Neg (Negative) 04/04/23 00:59 Urine Urobilinogen Neg mg/dL (Negative) 04/04/23 00:59 Ur Leukocyte Esterase 2+ (Negative) H 04/04/23 00:59 Urine RBC Too numerous to cnt /hpf (0-2) H 04/04/23 00:59 Urine WBC Too numerous to cnt /hpf (0-5) H 04/04/23 00:59 Ur Squamous Epith Cells None /hpf (0-5) 04/04/23 00:59 Amorphous Sediment Not Reportable 04/04/23 00:59 Urine Bacteria None /hpf (NONE) 04/04/23 00:59 Urine Opiates Screen Positive ng/mL (Negative) H 04/04/23 00:59 Ur Barbiturates Screen Negative ng/mL (Negative) 04/04/23 00:59 Ur Phencyclidine Scrn Negative ng/mL (Negative) 04/04/23 00:59 Ur Amphetamines Screen Negative ng/mL (Negative) 04/04/23 00:59 U Benzodiazepines Scrn Negative ng/mL (Negative) 04/04/23 00:59 Urine Cocaine Screen Negative ng/mL (Negative) 04/04/23 00:59 U Marijuana (THC) Screen Negative ng/mL (Negative) 04/04/23 00:59 All radiology interpretation(s) finalized by discharge Discharge Plan Discharge Patient Disposition: Home Clinical Impression: Transient cerebral ischemia Condition: Stable Prescriptions: No Action acetaminophen 500 mg capsule 500 mg PO Q4H PRN albuterol sulfate 90 mcg/actuation HFA aerosol inhaler 2 puff inhalation Q4H PRN baclofen 10 mg tablet 10 mg PO TID diclofenac sodium [Arthritis Pain (diclofenac)] 1 % gel 2 g topical QID PRN Rx Instructions: apply to single elbow, wrist or hand; for hand includes palm/fingers/back of hand bisacodyl [Dulcolax (bisacodyl)] 5 mg tablet,delayed release (DR/EC) 5 mg PO DAILY PRN bisacodyl [Dulcolax (bisacodyl)] 10 mg suppository 10 mg FL DAILY PRN Eliquis 5 mg tablet 5 mg PO BID Fleet Enema 19-7 gram/118 mL enema 118 ml FL DAILY PRN hydrocodone-acetaminophen 5-325 mg tablet 1 tab PO Q4H PRN naloxone 0.4 mg/mL solution 0.4 mg SUBCUT Q2M PRN Rx Instructions: NTExceed 10 mg total dose/episode levothyroxine 125 mcg capsule 125 mcg PO DAILY magnesium hydroxide [Milk of Magnesia] 400 mg/5 mL suspension 30 ml PO DAILY PRN nystatin 100,000 unit/gram cream 1 applic topical BID PRN nystatin 100,000 unit/gram powder 1 applic topical BID PRN Thera-Tabs M 27 mg iron-400 mcg tablet PO DAILY triamcinolone acetonide 0.1 % cream 1 applic topical BID PRN cefdinir 300 mg capsule 300 mg PO BID gabapentin 600 mg tablet 600 mg PO TID nitrofurantoin monohyd/m-cryst [Macrobid] 100 mg capsule 100 mg PO BID Qty: 60 1RF Rx Instructions: must administer with a meal/food ciprofloxacin HCl 500 mg tablet 500 mg PO Q12H Qty: 20 0RF amlodipine 5 mg tablet 5 mg PO DAILY Qty: 30 0RF Discharge Orders: Discharge ED (Routine); Ordered 04/04/23 Ordered By: Moise Mcgrath Referrals: Fitz Solis DO [Primary Care Provider] - 1-3 days Discharge Diet: Advance as tolerated Discharge Activity: Resume usual activity Patient Instructions: Transient Ischemic Attack (ED) Coding Level of Care Code ED [employer] for Jayla Abdi
[2023-04-04 02:33] VITALS: BP 133/60; PULSE 62; RESP 16; O2SAT 100
== END 2023-04-04 03:02 | disposition home or self-care (01) ==
PROVIDERS: Emergency Provider Emergency Medicine; PCP Internal Medicine
DX: G45.9 Transient cerebral ischemic attack, unspecified (principal); Z79.01 Long term (current) use of anticoagulants; I25.10 Atherosclerotic heart disease of native coronary artery without angina pectoris; N18.30 Chronic kidney disease, stage 3 unspecified; G81.90 Hemiplegia, unspecified affecting unspecified side
CPT/HCPCS: 36416; 70450; 70496; 70498; 71045; 80053; 80306; 81001; 82962; 85025; 85610; 85730; 87077; 87086; 87186; 93005; 93010; 99285; Q9967

== ENCOUNTER → 2023-04-04 10:10 | Outpatient (BNVA) | payer MEDICARE, MEDICAID, SELFPAY | PROVIDERS: PCP Internal Medicine; Visit Provider Nurse Practitioner Family | DX: B35.4 Tinea corporis (principal); B35.1 Tinea unguium; D22.62 Melanocytic nevi of left upper limb, including shoulder; L57.8 Other skin changes due to chronic exposure to nonionizing radiation; G81.04 Flaccid hemiplegia affecting left nondominant side | CPT/HCPCS: 99214 ==

== ENCOUNTER 2023-05-04 12:42 | Outpatient (CLI) | payer MEDICARE, MEDICAID, SELFPAY ==
--- NOTE | 2023-05-04 12:55 | CTR_ITS ---
PROCEDURE INFORMATION: Exam: CT Abdomen And Pelvis Without Contrast Exam date and time: 05/04/2023 1:32 PM Age: 73 years old Clinical indication: Abdominal pain; Right; Prior surgery; Surgery date: 6+ months; Surgery type: Gb. Gastrectomy. Csection. Ureteral stent. Patient HX: C/O RT flank pain. Recent bladder stones. ; Additional info: Nephrolithiasis TECHNIQUE: Imaging protocol: Computed tomography of the abdomen and pelvis without contrast. Radiation optimization: All CT scans at this facility use at least one of these dose optimization techniques: automated exposure control; mA and/or kV adjustment per patient size (includes targeted exams where dose is matched to clinical indication); or iterative reconstruction. REPORTING DATA: Count of CT and Cardiac NM exams in prior 12 months: This patient has received 5 known CTs and 0 known cardiac nuclear medicine studies in the 12 months prior to the current study. COMPARISON: CT kidney stone [id number] 09/13/2022 11:03 AM RADIATION DOSE METRICS: Total DLP (mGy-cm): 624.41 FINDINGS: Liver: No mass. Gallbladder and bile ducts: Cholecystectomy. Pancreas: No ductal dilation. Unchanged 1.5 cm pancreatic body cystic lesion. Spleen: No splenomegaly. Adrenal glands: No mass. Kidneys and ureters: Right nephroureteral stents without complication. Prior right renal pelvis calculus no longer visualized. Right renal stones otherwise unchanged. Previously described distal right ureteral soft tissue thickening is not well characterized with stent in place. Stomach and bowel: No obstruction. Appendix: No evidence of appendicitis. Intraperitoneal space: No free air. No significant fluid collection. Vasculature: No abdominal aortic aneurysm. Lymph nodes: No enlarged lymph nodes. Urinary bladder: Incompletely distended. Perivesicular stranding. Reproductive: Unremarkable as visualized. Bones/joints: Degenerative changes without acute findings. Soft tissues: Unchanged wide-mouth ventral abdominal wall hernia. CT/CT abdomen pelvis wo con [id number] IMPRESSION: Prior right renal pelvis calculus no longer visualized. Mild right-sided hydroureteronephrosis with nephroureteral stent in place.
== END 2023-05-04 12:43 | disposition home or self-care (01) ==
PROVIDERS: PCP Internal Medicine; Visit Provider Urology
DX: N20.0 Calculus of kidney (principal); N13.30 Unspecified hydronephrosis
CPT/HCPCS: 74176

== ENCOUNTER 2023-07-03 18:57 | Inpatient (IN) | payer MEDICARE, MEDICAID, SELFPAY ==
[2023-07-03 18:59] VITALS: BP 184/81; PULSE 100; RESP 16; TEMP 39.3; O2SAT 92; BMI 30.7
--- NOTE | 2023-07-03 19:04 | XRR_ITS ---
PROCEDURE INFORMATION: Exam: XR Chest Exam date and time: 07/03/2023 7:25 PM Age: 73 years old Clinical indication: Patient HX: Fever; AMS TECHNIQUE: Imaging protocol: Radiologic exam of the chest. Views: 1 view. COMPARISON: CR XR chest 1V portable [id number] 04/04/2023 12:30 AM FINDINGS: Lungs: Unremarkable. No consolidation. Pleural spaces: Unremarkable. No pleural effusion. No pneumothorax. Heart/Mediastinum: Cardiomegaly. Bones/joints: Unremarkable. XR/XR chest 1V portable [id number] IMPRESSION: Cardiomegaly.
--- NOTE | 2023-07-03 19:19 | ECG_ITS ---
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 Measurements Intervals [place] Rate: 90 P: 76 [place]: 135 QRS: -64 QRSD: 148 T: 33 QT: 384 QTc: 470 Interpretive Statements SINUS RHYTHM LEFT AXIS DEVIATION [QRS AXIS < -30] RIGHT BUNDLE BRANCH BLOCK [120+ ms QRS DURATION, UPRIGHT V1, 40+ ms S IN I/aVL/V4/V5/V6] Compared to ECG 04/04/2023 00:16:05 Left-axis deviation now present ST (T wave) deviation no longer present Electronically Signed On 07-05-2023 0:45:17 SNAKE CHARMER by Olimpia So M.D. [email or web address]
[2023-07-03] MEDS: acetaminophen 500 mg Tablet 1000 MG PO (19:36)
[2023-07-03] MEDS: sodium chloride 0.9% 1,000 ML 999 ML IV (19:38)
--- NOTE | 2023-07-03 19:39 | ED_ITS ---
HPI - Fever 2 General: Chief Complaint: Fever Stated Complaint: AMS Time Seen by Provider: 07/03/23 19:00 History of Present Illness: Patient presents to the ER by EMS with complaints of altered mental status and fever. Per the prison patient's fever got up to 105 degrees and patient was hallucinating and seeing things that did not make a whole lot of sense. Patient's temperature for EMS was 102. group home said the patient's O2 sat was in the mid 80s on room air but when EMS arrived they got to her saturations in the low 90s on room air. Patient does have a history of a recent ureteral stent being removed. Upon arrival to the ER patient's temperature was 102.8 degrees orally. 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 Peripheral vascular disease, unspecified Chronic kidney disease, stage 3 unspecified Chronic kidney disease Hemiplegia Obstructive sleep apnea (adult) (pediatric) Obesity, unspecified Cerebral infarction, unspecified Paralysis left Hypothyroidism Surgical History Hx of tonsillectomy Hx of cholecystectomy Hx of resection of stomach Hx of section Family History Father , AT 78 MRSA (methicillin resistant Staphylococcus aureus) Mother , AT AGE 60 Cancer LUNG Social History Smoking and tobacco/nicotine status: never used tobacco/nicotine Alcohol intake: current Alcohol intake frequency: 0-2 Drinks per Day Substance/Drug Use: never Marital status: Current occupational status: disabled Physical Exam 2 Const: COMMON NORMALS: no acute distress, average body habitus, no limitations, healthy appearing, alert and well nourished; negative for patient oriented x3 (Oriented to person only) HENMT: COMMON NORMALS: normocephalic, hearing grossly normal bilaterally, external ears normal, Normal external nose present, moist oral mucous membranes and oropharynx normal HEAD & SCALP: normocephalic NOSE: Normal external nose present EXTERNAL EAR: Yes external ears normal Neck/C-Spine: COMMON NORMALS: full ROM, no lymphadenopathy, supple, no meningeal signs, no JVD and Thyroid normal THYROID: Thyroid normal Chest: COMMONS NORMALS: normal inspection of the chest and normal palpation of entire chest wall Resp: COMMON NORMALS: normal respiratory effort, No retractions, No use of accessory muscles and clear to auscultation bilaterally AUSCULTATION: clear to auscultation bilaterally Cardio: COMMON NORMALS: no JVD, regular rate, regular rhythm, S1 normal heart sound present, S2 normal heart sound present, No gallops present (Cardio), No clicks present (Cardio), No murmurs present (Cardio) and No rub (Cardio) R ATE: regular rate RHYTHM: regular rhythm HEART SOUNDS: S1 normal heart sound present and S2 normal heart sound present GI: COMMON NORMALS: Normal to inspection, nondistended, normoactive bowel sounds present, Soft to palpation, non-tender, No hepatosplenomegaly present, no masses and no bruits PALPATION: Yes Soft to palpation and Yes No hepatosplenomegaly present Neuro: COMMON NORMALS: negative for patient oriented x3 (Oriented to person only) SENSORIUM/ORIENTATION: Yes alert MENINGEAL SIGNS: Yes no meningeal signs Course 2 Vital Signs: Vital signs: Vital Signs Temperature 102.8 F H 07/03/23 18:59 Pulse Rate 88 07/03/23 19:40 Respiratory Rate 24 H 07/03/23 19:40 Blood Pressure 167/65 07/03/23 19:40 Pulse Oximetry 90 07/03/23 19:40 Oxygen Delivery Me thod Nasal Cannula 07/03/23 19:40 MDM - Fever Medical Decision Making Physical exam was performed workup was started. Lab work was obtained, urine, chest x-ray, patient has a slightly elevated BUN/creatinine of 14 and 1.4, glucose 182, magnesium 1.6, urinalysis showed positive for infection. Chest x- ray was negative. Blood cultures was obtained. Patient was bolused 1 L normal saline, gauze milligrams of Tylenol p.o., and ciprofloxacin 400 mg IV, Dr. Gutierrez was consulted who agreed to place patient on [facility] inpatient for further evaluation and treatment. Differential Diagnosis Unlikely abdominal pain, acute appendicitis, calculus of kidney, constipation, diverticulitis, endometriosis, gastroenteritis, pancreatitis or small bowel obstruction Medical Records I reviewed the patient's medical records. Lab Data I reviewed the patient's lab results. 07/03/23 19:30 07/03/23 19:30 Radiology Impressions Chest X-Ray 07/03/23 19:04 IMPRESSION: Cardiomegaly. Laboratory Results WBC 7.81 10^3/uL (3.29-11.43) 07/03/23 19: RBC 4.56 10^6/uL (3.85-5.65) 07/03/23: Hgb 13.10 g/dL (11.27-16.99) 07/03/23: Hct 43.2 % (36-47) 07/03/23: MCV 94.7 fl (85-98) 07/03/23: MCH 28.7 pg (27-33) 07/03/23: MCHC 30.3 g/dL (30-55) 07/03/23: RDW 14.0 % (12.1-15.1) 07/03/23: Plt Count 191 10^3/cmm (157-399) 07/03/23: MPV 10.1 fL (7.4-10.4) 07/03/23: Neut % (Auto) 81.2 % 07/03/23 19: Lymph % (Auto) 7.4 % 07/03/23: [place] % (Auto) 8.3 % 07/03/23: Eos % (Auto) 2.2 % 07/03/23: Baso % (Auto) 0.5 % 07/03/23: Neut # (Auto) 6.34 10^3/uL (1.8-7.7) 07/03/23: Lymph # (Auto) 0.6 10^3/uL (0.8-4.8) L 07/03/23 19: [place] # (Auto) 0.7 10^3/uL (0.2-0.9) 07/03/23: Eos # (Auto) 0.2 10^3/uL (0.0-0.8) 07/03/23 19:30 Baso # (Auto) 0.0 10^3/uL (0.0-0.1) 07/03/23 19:30 Nucleated RBC % (auto) 0 % 07/03/23 19: Nucleated RBCs # 0.0 /100WBC 07/03/23 19: PT 17.20 SECONDS (12.1-14.9) H 07/03/23 19:30 INR 1.36 (0.8-1.2) H 07/03/23 19:30 Sodium 134 mmol/L (136-145) L 07/03/23 19: Potassium 4.0 mmol/L (3.5-5.1) 07/03/23: Chloride 95 mmol/L (98-107) L 07/03/23: Carbon Dioxide 30 mmol/L (22-29) H 07/03/23:30 Anion Gap 13.0 (5-19) 07/03/23 19: BUN 14 mg/dL (8-23) 07/03/23 19: Creatinine 1.4 mg/dL (0.5-0.9) H 07/03/23 19:30 GFR Calculation Not Reportable 07/03/23: Glucose 182 mg/dL (65-115) H 07/03/23 19:30 Calculated Osmolality 283 mOsm/kg (285-295) L 07/03/23: Lactic Acid 1.9 mmol/L (0.5-2.2) 07/03/23: Calcium 8.9 mg/dL (8.5-10.5) 07/03/23: Magnesium 1.6 mg/dL (1.7-2.3) L 07/03/23 19:30 Total Bilirubin 0.5 mg/dL (0.15-1.2) 07/03/23: AST 24 U/L (0-32) 07/03/23 19:30 ALT 15 U/L (0-33) 07/03/23 19:30 Alkaline Phosphatase 94 U/L (35-105) 07/03/23 19: Total Protein 5.9 g/dL (6.6-8.7) L 07/03/23 19:30 Albumin 3.6 g/dL (3.5-5.2) 07/03/23 19:30 Globulin 2.3 g/dL (1.3-4.6) 07/03/23 19:30 TSH 2.31 uIU/mL (0.27-4.20) 07/03/23 19:30 Prolactin 23.27 ng/mL (4.8-23.3) 07/03/23 19:30 Urine Color [place] (Yellow) 07/03/23 19:38 Urine Appearance Turbid (CLEAR) A 07/03/23 19:38 Urine pH 5 (5-7) 07/03/23 19:38 Ur Specific [place] 1.015 (1.005-1.030) 07/03/23 19:38 Urine Protein 3+ (Negative) H 07/03/23 19:38 Urine Glucose (UA) Norm (Normal) 07/03/23 19:38 Urine Ketones 1+ (Negative) H 07/03/23 19:38 Urine Blood 3+ (Negative) H 07/03/23 19:38 Urine Nitrate Positive (Negative) H 07/03/23 19:38 Urine Bilirubin 1+ (Negative) H 07/03/23 19:38 Urine Urobilinogen 1 mg/dL (Negative) H 07/03/23 19:38 Ur Leukocyte Esterase 2+ (Negative) H 07/03/23 19:38 Urine RBC 80-100 /hpf (0-2) H 07/03/23 19:38 Urine WBC 55-80 /hpf (0-5) H 07/03/23 19:38 Ur Squamous Epith Cells 0-4 /hpf (0-5) H 07/03/23 19:38 Amorphous Sediment Not Reportable 07/03/23 19:38 Urine Bacteria 1+ /hpf (NONE) H 07/03/23 19:38 Urine Mucus 1+ /hpf 07/03/23 19:38 All radiology interpretation(s) finalized by discharge EKG Data EKG 1: I personally reviewed and interpreted this EKG as follows: EKG interpretation date: 07/03/23 EKG interpretation time: 19:19 Prior EKG tracings: not available for review Interpretation: Ventricular rate 90 bpm, [place] interval 135, QRS duration 148, QTc of 431, sinus rhythm, left axis deviation, right bundle branch block Discharge Plan Discharge Patient Disposition: Admitted As Inpatient Clinical Impression: Acute alteration in mental status, Urinary tract infection, Fever Condition: Stable Coding Level of Care Code ED Instructor Of Nursing for Jayla Abdi
[2023-07-03 19:40] VITALS: BP 167/65; PULSE 88; RESP 24; O2SAT 90
[2023-07-03 19:49] LABS: Basophils % 0.5 %; Eosinophils # 0.2 10^3/uL (0.0-0.8); Eosinophils % 2.2 %; Hematocrit 43.2 % (36-47); Lymphocytes # 0.6 10^3/uL (0.8-4.8); Lymphocytes % 7.4 %; Mean Corpuscular HGB Conc 30.3 g/dL (30-55); Mean Corpuscular Hemoglobin 28.7 pg (27-33); Mean Corpuscular Volume 94.7 fl (85-98); Mean Platelet Volume 10.1 fL (7.4-10.4); Monocytes # 0.7 10^3/uL (0.2-0.9); Monocytes % 8.3 %; Neutrophils # 6.34 10^3/uL (1.8-7.7); Neutrophils % 81.2 %; Nucleated Red Blood Cells % 0 %; Platelet Count 191 10^3/cmm (157-399); Red Blood Count 4.56 10^6/uL (3.85-5.65); White Blood Count 7.81 10^3/uL (3.29-11.43)
[2023-07-03 20:06] LABS: Protein Urine 3+ (Negative); Specific Gravity, Urine 1.015 (1.005-1.030); Urine Appearance Turbid (CLEAR); Urine Color Amber (Yellow); pH Urine 5 (5-7)
[2023-07-03 20:07] LABS: Add Urine Microscopic? YES; Bacteria Urine 1+ /hpf; Bilirubin Urine 1+ (Negative); Blood Urine 3+ (Negative); Glucose Urine UA Norm (Normal); Ketones Urine 1+ (Negative); Leukocyte Esterase Urine 2+ (Negative); Mucus Urine 1+ /hpf; Nitrate Urine Positive (Negative); RBC Urine 80-100 /hpf (0-2); Squamous Epithelial Cell Urine 0-4 /hpf (0-5); Urobilinogen Urine 1 mg/dL (Negative); WBC Urine 55-80 /hpf (0-5)
[2023-07-03 20:08] LABS: Add Urine Culture? Yes
[2023-07-03 20:10] LABS: INR 1.36 (0.8-1.2)
[2023-07-03 20:15] LABS: Lactic Sepsis W/Reflex 1.9 mmol/L (0.5-2.2)
[2023-07-03] MEDS: ciprofloxacin 400 MG/200 ML PREMIX 200 MG IV (20:22)
[2023-07-03 20:24] LABS: Prolactin 23.27 ng/mL (4.8-23.3)
[2023-07-03 20:25] LABS: Alanine Aminotransferase 15 U/L (0-33); Albumin Level 3.6 g/dL (3.5-5.2); Alkaline Phosphatase 94 U/L (35-105); Aspartate Amino Transferase 24 U/L (0-32); Blood Urea Nitrogen 14 mg/dL (8-23); Calcium 8.9 mg/dL (8.5-10.5); Carbon Dioxide 30 mmol/L (22-29); Chloride 95 mmol/L (98-107); Creatinine Clr Calc Pharmacy 42.3681; Globulin 2.3 g/dL (1.3-4.6); Glucose 182 mg/dL (65-115); Magnesium 1.6 mg/dL (1.7-2.3); Osmolality Calculated 283 mOsm/kg (285-295); Sodium 134 mmol/L (136-145); Thyroid Stimulating Hormone 2.31 uIU/mL (0.27-4.20); Total Bilirubin 0.5 mg/dL (0.15-1.2); Total Protein 5.9 g/dL (6.6-8.7)
[2023-07-03 21:08] VITALS: BP 121/65; PULSE 84; RESP 27
[2023-07-03 21:13] VITALS: O2SAT 94
[2023-07-03 21:31] VITALS: BP 119/17; PULSE 80; RESP 23; TEMP 37.1; O2SAT 95
--- NOTE | 2023-07-03 21:41 | PM.HP ---
Providers/Chief Complaint Admitting Physician: Jose M Gutierrez DO Primary Care Provider: Fitz Solis DO Chief Complaint: AMS History of Present Illness Rupa Hernandez is a 73 year old female who permanently resides at [facility] care home in [facility]. She presents with fever. She said that she had refused to come because every time I come to make fun of me . But when her temperature spiked at the care home and they felt she had an altered mental status she came to the emergency room. Patient states that she vomiting today. 4 days ago she had a ureteral stent removed that had been placed approximately 1 month ago after she had 3 kidney stones surgically removed she states that she is had continued back pain for a couple months now it is mostly on her right side of her back and she uses Voltaren gel. She has been on Cipro since the removal of the stents. 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); Denies: headache(s) or dizziness Psych: Denies: anxiety or depression Mando/Lymph: Denies: easy bruising or easy bleeding Medications/Allergies Home Medications Medication Instructions Recorded Confirmed Last Taken Type acetaminophen 500 mg capsule 500 mg PO Q4H PRN 11/06/21 03/11/22 Unknown History albuterol sulfate 90 mcg/actuation 2 puff inhalation Q4H PRN 11/06/21 03/11/22 Unknown History aerosol inhaler apixaban 5 mg tablet (Eliquis) 5 mg PO BID 11/06/21 03/11/22 Unknown History baclofen 10 mg tablet 10 mg PO TID 11/06/21 03/11/22 Unknown History bisacodyl 10 mg rectal suppository 10 mg WV DAILY PRN 11/06/21 03/11/22 Unknown History (Dulcolax (bisacodyl)) bisacodyl 5 mg tablet,delayed 5 mg PO DAILY PRN 11/06/21 03/11/22 Unknown History release (Dulcolax (bisacodyl)) cefdinir 300 mg capsule 300 mg PO BID 11/06/21 03/11/22 Unknown History diclofenac sodium 1 % topical gel 2 g topical QID PRN 11/06/21 03/11/22 Unknown History (Arthritis Pain (diclofenac)) hydrocodone 5 mg-acetaminophen 325 1 tab PO Q4H PRN 11/06/21 03/11/22 Unknown History mg tablet levothyroxine 125 mcg capsule 125 mcg PO DAILY 11/06/21 03/11/22 Unknown History magnesium hydroxide 400 mg/5 mL 30 ml PO DAILY PRN 11/06/21 03/11/22 Unknown History oral suspension (Milk of Magnesia) multivitamin-iron 27 mg-folic acid tab PO DAILY 11/06/21 03/11/22 Unknown History 400 mcg-calcium and minerals tablet (Thera-Tabs M) naloxone 0.4 mg/mL injection 0.4 mg SUBCUT Q2M PRN 11/06/21 03/11/22 Unknown History solution nystatin 100,000 unit/gram topical 1 applic topical BID PRN 11/06/21 03/11/22 Unknown History cream nystatin 100,000 unit/gram topical 1 applic topical BID PRN 11/06/21 03/11/22 Unknown History powder sodium phosphates 19 gram-7 118 ml WV DAILY PRN 11/06/21 03/11/22 Unknown History gram/118 mL enema (Fleet Enema) triamcinolone acetonide 0.1 % 1 applic topical BID PRN 11/06/21 03/11/22 Unknown History topical cream gabapentin 600 mg tablet 600 mg PO TID 11/13/21 03/11/22 Unknown History nitrofurantoin 100 mg PO BID #60 caps 01/14/22 03/11/22 Unknown Rx monohydrate/macrocrystals 100 mg capsule (Macrobid) amlodipine 5 mg tablet 5 mg PO DAILY #30 tabs 06/11/22 Unknown Rx ciprofloxacin HCl 500 mg tablet 500 mg PO Q12H #20 tabs 03/16/23 Unknown Rx Allergies Allergy/AdvReac Type Severity Reaction Status Date / Time Penicillins Allergy Unknown Verified 03/11/22 14:36 Ypielik-JUA-ZoY Reductase Allergy Unknown Verified 03/11/22 14:36 Inhibitor PFSH Acute PFSH: Medical History Cystitis cystica Chronic embolism 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 Polyneuropathy, unspecified Fibromyalgia Urinary tract infection, site not specified Other chronic pain 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 shelter (current) use of anticoagulants Peripheral vascular disease, unspecified Chronic kidney disease, stage 3 unspecified Chronic kidney disease Hemiplegia Obstructive sleep apnea (adult) (pediatric) Obesity, unspecified Cerebral infarction, unspecified Paralysis left Hypothyroidism Surgical History Hx of tonsillectomy Hx of cholecystectomy Hx of resection of stomach Hx of section Family History Father , AT 78 MRSA (methicillin resistant Staphylococcus aureus) Mother , AT AGE 60 Cancer LUNG Social History Smoking and tobacco/nicotine status: never used tobacco/nicotine Alcohol intake: current Alcohol intake frequency: 0-2 Drinks per Day Substance/Drug Use: never Marital status: Current occupational status: disabled Vitals/I&O/Wt Last Vital Signs Temp 102.8 F H 07/03/23 18:59 Pulse 84 07/03/23 21:08 Resp 27 H 07/03/23 21:08 BP 121/65 07/03/23 21:08 Pulse Ox 94 07/03/23 21:13 O2 Del Method Nasal Cannula 07/03/23 21:13 O2 Flow Rate 3 07/03/23 21:13 07/03/23 07/03/23 07/03/23 06:59 14:59 22:59 Intake Total 1000 / 1000 Balance 1000 / 1000 Weight last 48 hrs Weight 91.626 kg Physical Exam Narrative: 73-year-old female that are slightly older than her stated age she is in no acute distress at time of exam. She is obese well-nourished well-hydrated Neuro left-sided hemiparesis otherwise she is at baseline. She is alert oriented to person place time and situation HEENT head is normocephalic atraumatic pupils equal round and reactive to light and commendation extraocular muscles are intact there is no scleral icterus patient does have abnormality/discoloration under bilateral eyes and on eyelids that she reports having her whole life mouth and throat mucous membranes are moist and pink. She has very poor dentition with about one half of her post remaining Neck supple no JVD soft likely flow bruits heard bilaterally and at the superior aspect of the sternum. Heart regular normal S1-S2 without murmur click gallop or rub Lungs: Clear to auscultation without wheezes rales or rhonchi Abdomen soft nontender nondistended positive bowel sounds midline scar present she reports from obesity surgery in her 30s. She does have an umbilical hernia that is reducible Extremities no clubbing or cyanosis or edema Psych: Mood and affect seem appropriate although her comment about people making fun of her seemed odd. She does have a stutter but then tells me she speaks normally Skin. She has some slight erythema in her low back area I am not sure if that is where the Voltaren is applied. Otherwise no rashes or lesions other than reported above Back: No significant scoliosis or kyphosis. No significant CVA tenderness on palpation Data 07/03/23 19:30 07/03/23 19:30 Micro: Microbiology 07/03/23 19:56 Blood Culture - Preliminary Blood SPECIMEN COLLECTED 07/03/23 19:53 Blood Culture - Preliminary Blood SPECIMEN COLLECTED CXR: My impression: Clear lung mccormick Cardiomegaly A&P Assessment and plan (1) Urinary tract infection: Qualifiers: Hematuria presence: with hematuria Urinary tract infection type: acute cystitis Qualified Code(s): N30.01 - Acute cystitis with hematuria (2) Fever: Qualifiers: Fever type: unspecified Qualified Code(s): R50.9 - Fever, unspecified (3) Acute alteration in mental status: (4) History of kidney stones: (5) Status post placement of ureteral stent: (6) Remote history of stroke: (7) Hypomagnesemia: Plan Patient will be admitted for UTI and fever. Antibiotic choice is complicated. Patient has recently been on Cipro and obviously developed fever and abnormal UA on this medication. I initially wanted to use Zosyn she does have a penicillin allergy that is indeterminant. Will give Rocephin and aztreonam until cultures are resulted. Consideration for CT to rule out kidney stone was considered however patient's not having significant flank pain at this time nor on exam. Unfortunately I think she is prone to infection with all her urogenital issues. Hypomagnesemia was noted and will be replaced. Attestations Medical Necessity Statement*: Patient is admitted for UTI and for antibiotics and patient with recent ureteral stent removal with instrumentation and complicated history of multiple antibiotic usage. She is expected to cross 2 midnights for care Coding Level of Care Code Acute Code for [facility] Diagnoses Urinary tract infection N30.01 Hematuria presence: with hematuria Urinary tract infection type: acute cystitis Fever R50.9 Fever type: unspecified Acute alteration in mental status R41.82 History of kidney stones Z87.442 Status post placement of ureteral stent Z96.0 Remote history of stroke Z86.73 Hypomagnesemia E83.42
[2023-07-03 22:07] VITALS: BMI 32.3
[2023-07-03] MEDS: sodium chloride 0.9% 1,000 ML 75 ML IV (22:47)
[2023-07-03] MEDS: cefTRIAXone 1,000 MG in sodium chloride 0.9% (plus) 50 ML 100 MG IV (22:53)
[2023-07-03 23:35] VITALS: BP 120/68; PULSE 81; RESP 22; TEMP 35.3; O2SAT 96
[2023-07-03] MEDS: aztreonam 2,000 MG in sodium chloride 0.9% (plus) 100 ML 200 MG IV (23:52)
[2023-07-04] VITALS (7 sets, daily range): BP systolic 119–130; BP diastolic 56–76; PULSE 69–81; RESP 18–22; TEMP 36.3–36.8; O2SAT 92–98
[2023-07-04] MEDS: magnesium sulfate premix 4 GM/100 ML PREMIX IV (00:21)
--- NOTE | 2023-07-04 03:36 | PC.NURSE ---
unable to fully complete home medication list. patient AMS and unsure of medications. added what medications were sent from [facility] upon addmission.
[2023-07-04 04:26] LABS: Anion Gap 11.1 (5-19); Blood Urea Nitrogen 15 mg/dL (8-23); Calcium 8.2 mg/dL (8.5-10.5); Carbon Dioxide 29 mmol/L (22-29); Chloride 105 mmol/L (98-107); Creatinine Clr Calc Pharmacy 51.2592; Glucose 148 mg/dL (65-115); Osmolality Calculated 296 mOsm/kg (285-295); Potassium 4.1 mmol/L (3.5-5.1); Sodium 141 mmol/L (136-145)
--- NOTE | 2023-07-04 08:16 | PC.PHAR ---
Pt is from [facility] [phone]
[2023-07-04] MEDS: amlodipine 5 mg Tablet PO (10:16)
[2023-07-04] MEDS: docusate sodium 100 mg Capsule PO ×2 (10:16→17:30)
[2023-07-04] MEDS: gabapentin 300 mg Capsule 600 MG PO ×3 (10:16→21:19)
[2023-07-04] MEDS: levothyroxine 125 mcg Tablet PO (10:17)
[2023-07-04] MEDS: apixaban 5 mg Tablet PO ×2 (10:17→17:31)
[2023-07-04] MEDS: baclofen 10 mg Tablet PO ×3 (10:17→21:19)
[2023-07-04] MEDS: aztreonam 2,000 MG in sodium chloride 0.9% (plus) 100 ML 200 MG IV ×2 (10:17→22:04)
--- NOTE | 2023-07-04 11:03 | PC.CHAP ---
Pastoral Care Encounter/Spiritual Assessment Type of Contact [] Declined bioinformatics specialist visit [] Patient/Family/Request visit [] Outpatient visit [] Follow-up visit [] Physician referral [] Code/Alert [x] Routine visit [] Staff referral [] Actively dying [] Patient sleeping [] Family support [] [] Out of room [] Palliative care [] [] Receiving care in room [] Pre-surgical visit [] Trauma [] Long length of stay [] ICU visit [] Other: Relational/Emotional Strength [] Patient feels connected with others/family/visitors/staff [] Distress [] Loneliness/isolation [] Abandonment Spirituality of Patient [x] Person of Elicia [] Attends Pentecostalism of their Elicia [] Believes in Prayer [] Reads Bible or Baptism materials [] There are Spiritual issues to be addressed Bilingual Patient Support Caseworker Interventions [] Prayer [x] Active listening [] Non-anxious presence [] Spiritual/emotional support [] Crisis/trauma care [] Spiritual counseling [] Bereavement support [] Provided bereavement packet [] Provided Bible/devotional materials [] Provided toy/stuffed animal, coloring book to patient or family member [] Provided Communion [] Anointing/[place] [] Salvation [x] Completed spiritual assessment [] Other: Impact on Illness or Injury [] Angry [] Fearful [] Anxious [] Often cries [] Exhaustion [] Unable to work [] Unable to attend holiness [] Unable to walk/stand [] Unable to read [] Unable to drive [] Unable to eat/drink [] Unable to sleep [] Unable to be with family [] Patient intubated [] Other: Summary 5 min Time spent with patient
[2023-07-04] MEDS: lanolin oint 7 gm 1 APPLIC TOPICAL (12:19)
[2023-07-04] MEDS: TRAMadol 50 mg Tablet 100 MG PO (12:37)
--- NOTE | 2023-07-04 13:27 | P.PN_ITS ---
Subjective 2 Subjective: Patient is not also today She has chronic history of stroke with left-sided weakness Patient wears briefs Afebrile No leukocytosis Patient is stating that her ureteral stent was removed recently at [facility] Vitals/I&O/Wt Last Vital Signs Temp 97.5 F L 07/04/23 11:20 Pulse 70 07/04/23 11:20 Resp 18 07/04/23 11:20 BP 125/62 07/04/23 11:20 Pulse Ox 97 07/04/23 11:20 O2 Del Method Room Air 07/04/23 11:20 O2 Flow Rate 3 07/04/23 01:05 07/03/23 07/04/23 07/04/23 22:59 06:59 14:59 Intake Total 1200 / 1200 250 / 1450 460 / 460 Balance 1200 / 1200 250 / 1450 460 / 460 Weight last 48 hrs Weight 98.566 kg Weight 96.524 kg Weight 91.626 kg Physical Exam 2 Narrative: Laying supine No active complaint No sign of new focal deficit Left-sided weakness Wearing adult briefs Abdomen soft Currently on room air S1, S2 Data 07/03/23 19:30 07/04/23 03:33 Micro: Microbiology 07/03/23 19:56 Blood Culture - Preliminary Blood SPECIMEN COLLECTED 07/03/23 19:53 Blood Culture - Preliminary Blood SPECIMEN COLLECTED A&P Assessment and plan (1) Urolithiasis: (2) History of kidney stones: (3) Status post placement of ureteral stent: (4) Hematuria: Qualifiers: Hematuria type: gross Qualified Code(s): R31.0 - Gross hematuria (5) Hypomagnesemia: (6) Cystitis cystica: (7) Urinary tract infection: Qualifiers: Hematuria presence: with hematuria Urinary tract infection type: acute cystitis Qualified Code(s): N30.01 - Acute cystitis with hematuria (8) Remote history of stroke: (9) Acute alteration in mental status: (10) Fever: Qualifiers: Fever type: unspecified Qualified Code(s): R50.9 - Fever, unspecified Plan Metabolic encephalopathy Related to UTI At this point I will continue antibiotics Previous urine culture positive for Enterococcus faecalis No history of ESBL I should be able to discharge her by tomorrow if her fever subsides completely There is no fever today No leukocytosis Patient has left-sided chronic weakness Full code She got admitted from from facility Continue consistent carb diet She is not experiencing any dysphagia Continue with thyroxine Signs of dehydration present continue IV fluids Attestations 2 Medical Necessity Statement*: Possible discharge by tomorrow Diagnoses Urolithiasis N20.9 History of kidney stones Z87.442 Status post placement of ureteral stent Z96.0 Gross hematuria R31.0 Hematuria type: gross Hypomagnesemia E83.42 Cystitis cystica N30.80 Urinary tract infection N30.01 Hematuria presence: with hematuria Urinary tract infection type: acute cystitis Remote history of stroke Z86.73 Acute alteration in mental status R41.82 Fever R50.9 Fever type: unspecified
[2023-07-04] MEDS: sodium chloride 0.9% 1,000 ML 75 ML IV (13:29)
[2023-07-04] MEDS: cefTRIAXone 1,000 MG in sodium chloride 0.9% (plus) 50 ML 100 MG IV (21:18)
[2023-07-05] VITALS (8 sets, daily range): BP systolic 95–116; BP diastolic 55–74; PULSE 70–94; RESP 18–21; TEMP 36.1–37.4; O2SAT 93–98
[2023-07-05] MEDS: sodium chloride 0.9% 1,000 ML 75 ML IV (02:48)
[2023-07-05 06:02] LABS: Basophils % 0.5 %; Eosinophils # 0.2 10^3/uL (0.0-0.8); Eosinophils % 2.3 %; Lymphocytes # 1.8 10^3/uL (0.8-4.8); Mean Corpuscular HGB Conc 27.8 g/dL (30-55); Mean Corpuscular Hemoglobin 28.2 pg (27-33); Mean Corpuscular Volume 101.5 fl (85-98); Mean Platelet Volume 10.1 fL (7.4-10.4); Monocytes # 1.1 10^3/uL (0.2-0.9); Monocytes % 13.7 %; Neutrophils # 4.75 10^3/uL (1.8-7.7); Neutrophils % 60.1 %; Nucleated Red Blood Cells % 0 %; Platelet Count 145 10^3/cmm (157-399); Red Blood Count 3.94 10^6/uL (3.85-5.65); Red Cell Distribution Width 14.3 % (12.1-15.1)
[2023-07-05 06:27] LABS: Anion Gap 14.7 (5-19); Blood Urea Nitrogen 14 mg/dL (8-23); Calcium 7.9 mg/dL (8.5-10.5); Carbon Dioxide 27 mmol/L (22-29); Chloride 104 mmol/L (98-107); Creatinine Clr Calc Pharmacy 62.4868; Glucose 104 mg/dL (65-115); Osmolality Calculated 293 mOsm/kg (285-295); Potassium 4.7 mmol/L (3.5-5.1); Sodium 141 mmol/L (136-145)
[2023-07-05] MEDS: gabapentin 300 mg Capsule 600 MG PO ×3 (09:29→21:50)
[2023-07-05] MEDS: levothyroxine 125 mcg Tablet PO (09:29)
[2023-07-05] MEDS: docusate sodium 100 mg Capsule PO ×2 (09:29→17:46)
[2023-07-05] MEDS: apixaban 5 mg Tablet PO ×2 (09:29→17:46)
[2023-07-05] MEDS: baclofen 10 mg Tablet PO ×3 (09:29→21:50)
[2023-07-05] MEDS: amlodipine 5 mg Tablet PO (09:29)
[2023-07-05] MEDS: TRAMadol 50 mg Tablet 100 MG PO (09:31)
[2023-07-05] MEDS: aztreonam 2,000 MG in sodium chloride 0.9% (plus) 100 ML 200 MG IV ×2 (09:34→21:50)
[2023-07-05] MEDS: FUROsemide 10 mg/mL SDV 2mL 20 MG IVP (09:44)
--- NOTE | 2023-07-05 12:07 | P.PN_ITS ---
Subjective 2 Subjective: Patient is afebrile Leukocytosis Blood culture showing Proteus, at this point we are not sure whether its penicillin sensitive versus ESBL Would like to repeat cultures Wait until I see final sensitivity report Turned off IV fluids Given Lasix today Vitals/I&O/Wt Last Vital Signs Temp 97.5 F L 07/05/23 11:15 Pulse 74 07/05/23 11:15 Resp 18 07/05/23 11:15 BP 95/56 07/05/23 11:15 Pulse Ox 97 07/05/23 11:15 O2 Del Method Nasal Cannula 07/05/23 11:15 O2 Flow Rate 3 07/05/23 07:30 07/04/23 07/05/23 07/05/23 22:59 06:59 14:59 Intake Total 270 / 1730 998.75 / 2728.75 1161.25 / 1161.25 Balance 270 / 1730 998.75 / 2728.75 1161.25 / 1161.25 Weight last 48 hrs Weight 101.65 kg Weight 98.566 kg Weight 96.524 kg Weight 91.626 kg Physical Exam 2 Narrative: Euvolemic GCS 15 Awake and alert Abdomen soft Left-sided chronic weakness GCS Lower extremity swelling noted Currently on 1.5 to 2 L There is no new focal deficit S1, S2 Data 07/05/23 05:29 07/05/23 05:29 Micro: Microbiology 07/05/23 10:45 Blood Culture - Preliminary Blood SPECIMEN COLLECTED 07/05/23 10:40 Blood Culture - Preliminary Blood SPECIMEN COLLECTED 07/03/23 19:38 Urine Culture - Preliminary Urine,Clean Catch Gram Negative Rods 07/03/23 19:53 Blood Culture - Preliminary Blood Proteus mirabilis 07/03/23 19:56 Blood Culture - Preliminary Blood NEGATIVE TO DATE A&P Assessment and plan (1) Cystitis cystica: (2) Urinary tract infection: Qualifiers: Hematuria presence: with hematuria Urinary tract infection type: acute cystitis Qualified Code(s): N30.01 - Acute cystitis with hematuria (3) Remote history of stroke: (4) Acute alteration in mental status: (5) Fever: Qualifiers: Fever type: unspecified Qualified Code(s): R50.9 - Fever, unspecified (6) Urolithiasis: (7) History of kidney stones: (8) Status post placement of ureteral stent: Plan Recurrent UTI No sign of sepsis I want people discharge the patient until I know final culture report to see if she will need PICC line 2 weeks of IV antibiotics versus oral agents I have repeated cultures for bacteremia with Proteus There is no fever or leukocytosis For her constipation given lactulose Discontinued IV fluids Given Lasix this morning She developed mild exacerbation of congestive heart failure preserved ejection fraction Attestations 2 Medical Necessity Statement*: Patient will stay until Diagnoses Cystitis cystica N30.80 Urinary tract infection N30.01 Hematuria presence: with hematuria Urinary tract infection type: acute cystitis Remote history of stroke Z86.73 Acute alteration in mental status R41.82 Fever R50.9 Fever type: unspecified Urolithiasis N20.9 History of kidney stones Z87.442 Status post placement of ureteral stent Z96.0
[2023-07-05] MEDS: magnesium hydroxide 30 mL UDC 15 ML PO (21:50)
[2023-07-06] VITALS (7 sets, daily range): BP systolic 104–121; BP diastolic 60–71; PULSE 70–75; RESP 16–18; TEMP 36.7–37.1; O2SAT 94–97
[2023-07-06 06:14] LABS: Anion Gap 10.7 (5-19); Blood Urea Nitrogen 13 mg/dL (8-23); Calcium 7.7 mg/dL (8.5-10.5); Carbon Dioxide 30 mmol/L (22-29); Chloride 101 mmol/L (98-107); Creatinine Clr Calc Pharmacy 69.7926; Glucose 112 mg/dL (65-115); Osmolality Calculated 287 mOsm/kg (285-295); Potassium 3.7 mmol/L (3.5-5.1); Sodium 138 mmol/L (136-145)
[2023-07-06] MEDS: docusate sodium 100 mg Capsule PO ×2 (09:34→16:44)
[2023-07-06] MEDS: amlodipine 5 mg Tablet PO (09:34)
[2023-07-06] MEDS: levothyroxine 125 mcg Tablet PO (09:35)
[2023-07-06] MEDS: apixaban 5 mg Tablet PO ×2 (09:35→16:44)
[2023-07-06] MEDS: baclofen 10 mg Tablet PO ×3 (09:35→21:59)
[2023-07-06] MEDS: gabapentin 300 mg Capsule 600 MG PO ×3 (09:35→22:00)
[2023-07-06] MEDS: TRAMadol 50 mg Tablet 100 MG PO ×2 (09:56→16:44)
[2023-07-06] MEDS: aztreonam 2,000 MG in sodium chloride 0.9% (plus) 100 ML 200 MG IV ×2 (10:21→22:17)
--- NOTE | 2023-07-06 10:29 | P.PN_ITS ---
Subjective 2 Subjective: Repeat cultures negative 2/3 bottles positive for Proteus Will call microbiology to get sensitive report Afebrile Patient is not happy with her diet Changed to regular Vitals/I&O/Wt Last Vital Signs Temp 98.6 F 07/06/23 08:00 Pulse 70 07/06/23 09:04 Resp 16 07/06/23 09:04 BP 121/66 07/06/23 08:00 Pulse Ox 97 07/06/23 09:04 O2 Del Method Nasal Cannula 07/06/23 09:04 O2 Flow Rate 3 07/06/23 09:04 07/05/23 07/06/23 07/06/23 22:59 06:59 14:59 Intake Total 878.75 / 2160.00 480 / 2640.00 Balance 878.75 / 2160.00 480 / 2640.00 Weight last 48 hrs Weight 102.682 kg Weight 101.65 kg Physical Exam 2 Narrative: Left-sided chronic weakness Euvolemic pleasant calm Nonfocal S1, S2 Abdomen soft Currently on room air Data 07/05/23 05:29 07/06/23 05:25 Micro: Microbiology 07/05/23 10:45 Blood Culture - Preliminary Blood SPECIMEN COLLECTED 07/05/23 10:40 Blood Culture - Preliminary Blood SPECIMEN COLLECTED 07/03/23 19:38 Urine Culture - Preliminary Urine,Clean Catch Gram Negative Rods 07/03/23 19:53 Blood Culture - Preliminary Blood Proteus mirabilis A&P Assessment and plan (1) History of kidney stones: (2) Cystitis cystica: (3) Urinary tract infection: Qualifiers: Hematuria presence: with hematuria Urinary tract infection type: acute cystitis Qualified Code(s): N30.01 - Acute cystitis with hematuria (4) Remote history of stroke: (5) Acute alteration in mental status: (6) Fever: Qualifiers: Fever type: unspecified Qualified Code(s): R50.9 - Fever, unspecified Plan Likely discharge tomorrow Will know more about culture and sensitivity report today 2/3 follow-up positive for Proteus Repeat blood cultures negative No fever or leukocytosis In consideration of negative blood cultures I might be able to discharge her on oral antibiotics back to the shelter Continue Eliquis Patient had recent ureteral stent removal Attestations 2 Medical Necessity Statement*: Possible discharge by tomorrow Diagnoses History of kidney stones Z87.442 Cystitis cystica N30.80 Urinary tract infection N30.01 Hematuria presence: with hematuria Urinary tract infection type: acute cystitis Remote history of stroke Z86.73 Acute alteration in mental status R41.82 Fever R50.9 Fever type: unspecified
--- NOTE | 2023-07-06 12:28 | PC.SOCIAL ---
IMM Updated Updated pt on IMM. No questions voiced. Provided pt a copy. Initialed, dated, & timed copy in chart.
[2023-07-06] MEDS: glycerin adult supp 1 EACH PR (15:35)
[2023-07-06] MEDS: lactulose oral liq 20 gm/30 mL UDC 30 GM PO (15:35)
[2023-07-06] MEDS: magnesium hydroxide 30 mL UDC 15 ML PO (21:58)
[2023-07-07] VITALS (8 sets, daily range): BP systolic 107–125; BP diastolic 57–68; PULSE 71–77; RESP 18; TEMP 36.7–37.3; O2SAT 92–96
[2023-07-07] MEDS: ondansetron 4 MG Tablet PO (00:35)
[2023-07-07] MEDS: docusate sodium 100 mg Capsule PO (10:04)
[2023-07-07] MEDS: gabapentin 300 mg Capsule 600 MG PO (10:04)
[2023-07-07] MEDS: amlodipine 5 mg Tablet PO (10:04)
[2023-07-07] MEDS: levothyroxine 125 mcg Tablet PO (10:04)
[2023-07-07] MEDS: apixaban 5 mg Tablet PO (10:04)
[2023-07-07] MEDS: baclofen 10 mg Tablet PO (10:05)
--- NOTE | 2023-07-07 10:17 | P.DS_ITS ---
Discharge Providers Date of Admission: 07/03/23 20:50 Date of Discharge: July 07, 2023 Attending Provider at Admission: Jose M Gutierrez DO Attending Provider at Discharge: Samir Cason MD Primary Care Provider: Fitz Solis DO Diagnoses at Discharge Discharge Diagnosis (1) History of kidney stones: Status: Acute (2) Cystitis cystica: Status: Acute (3) Urinary tract infection: Status: Acute Qualifiers: Hematuria presence: with hematuria Urinary tract infection type: acute cystitis Qualified Code(s): N30.01 - Acute cystitis with hematuria (4) Remote history of stroke: Status: Acute Permanent problem details: Residual left hemiparesis (5) Acute alteration in mental status: Status: Acute (6) Fever: Status: Acute Qualifiers: Fever type: unspecified Qualified Code(s): R50.9 - Fever, unspecified Reason for Visit Reason for Visit: [facility] Hospital Course Hospital Course 73 YO female resident of [facility], follows up at [facility] with urology had ureteral stent removal 4-day before her admission to the hospital presented with fever altered metastatic metabolic encephalopathy, she was put on estrogen and ceftriaxone initially, blood culture showed Proteus 2/3 bottles, repeat cultures negative, it is pansensitive, she will be discharged back to the facility on cefpodoxime twice a day regimen for 7 days, she probably will need chronic suppressive therapy for recurrent UTIs I have asked her to follow-up with her urologist at [facility]. Physical Exam Narrative: Patient has chronic left-sided weakness Laying supine GCS 15 S1, S2 Currently on room air Discharge Data Studies Completed and Pending Completed Studies During Hospitalization Category Date Time Status XR chest 1V portable [id number] Stat Exams 07/03/23 19:04 Completed Pending at discharge Category Date Time Status Blood Culture Stat Lab 07/03/23 19:56 Results Blood Culture Stat Lab 07/05/23 10:45 Results Radiology Impressions Chest X-Ray 07/03/23 19:04 IMPRESSION: Cardiomegaly. Laboratory Results WBC 7.90 10^3/uL (3.29-11.43) 07/05/23 05:29 RBC 3.94 10^6/uL (3.85-5.65) 07/05/23 05:29 Hgb 11.10 g/dL (11.27-16.99) L 07/05/23 05:29 Hct 40.0 % (36-47) 07/05/23 05:29 MCV 101.5 fl (85-98) H 07/05/23 05:29 MCH 28.2 pg (27-33) 07/05/23 05: MCHC 27.8 g/dL (30-55) L 07/05/23 05: RDW 14.3 % (12.1-15.1) 07/05/23 05:29 Plt Count 145 10^3/cmm (157-399) L 07/05/23 05:29 MPV 10.1 fL (7.4-10.4) 07/05/23 05:29 Neut % (Auto) 60.1 % 07/05/23 05: Lymph % (Auto) 23.0 % 07/05/23 05:29 [place] % (Auto) 13.7 % 07/05/23 05: Eos % (Auto) 2.3 % 07/05/23 05: Baso % (Auto) 0.5 % 07/05/23 05:29 Neut # (Auto) 4.75 10^3/uL (1.8-7.7) 07/05/23 05:29 Lymph # (Auto) 1.8 10^3/uL (0.8-4.8) 07/05/23 05:29 Gladwin # (Auto) 1.1 10^3/uL (0.2-0.9) H 07/05/23 05:29 Eos # (Auto) 0.2 10^3/uL (0.0-0.8) 07/05/23 05:29 Baso # (Auto) 0.0 10^3/uL (0.0-0.1) 07/05/23 05:29 Nucleated RBC % (auto) 0 % 07/05/23 05:29 Nucleated RBCs # 0.0 /100WBC 07/05/23 05:29 PT 17.20 SECONDS (12.1-14.9) H 07/03/23 19:30 INR 1.36 (0.8-1.2) H 07/03/23 19:30 Sodium 138 mmol/L (136-145) 07/06/23 05:25 Potassium 3.7 mmol/L (3.5-5.1) 07/06/23 05:25 Chloride 101 mmol/L (98-107) 07/06/23 05:25 Carbon Dioxide 30 mmol/L (22-29) H 07/06/23 05:25 Anion Gap 10.7 (5-19) 07/06/23 05:25 BUN 13 mg/dL (8-23) 07/06/23 05:25 Creatinine 0.9 mg/dL (0.5-0.9) 07/06/23 05:25 GFR Calculation Not Reportable 07/06/23 05:25 Glucose 112 mg/dL (65-115) 07/06/23 05:25 Calculated Osmolality 287 mOsm/kg (285-295) 07/06/23 05:25 Lactic Acid 1.9 mmol/L (0.5-2.2) 07/03/23 19:30 Calcium 7.7 mg/dL (8.5-10.5) L 07/06/23 05:25 Magnesium 1.6 mg/dL (1.7-2.3) L 07/03/23 19:30 Total Bilirubin 0.5 mg/dL (0.15-1.2) 07/03/23 19:30 AST 24 U/L (0-32) 07/03/23 19:30 ALT 15 U/L (0-33) 07/03/23 19:30 Alkaline Phosphatase 94 U/L (35-105) 07/03/23 19:30 Total Protein 5.9 g/dL (6.6-8.7) L 07/03/23 19:30 Albumin 3.6 g/dL (3.5-5.2) 07/03/23 19:30 Globulin 2.3 g/dL (1.3-4.6) 07/03/23 19:30 TSH 2.31 uIU/mL (0.27-4.20) 07/03/23 19:30 Prolactin 23.27 ng/mL (4.8-23.3) 07/03/23 19:30 Urine Color Michelle (Yellow) 07/03/23 19:38 Urine Appearance Turbid (CLEAR) A 07/03/23 19:38 Urine pH 5 (5-7) 07/03/23 19:38 Ur Specific [place] 1.015 (1.005-1.030) 07/03/23 19:38 Urine Protein 3+ (Negative) H 07/03/23 19:38 Urine Glucose (UA) Norm (Normal) 07/03/23 19:38 Urine Ketones 1+ (Negative) H 07/03/23 19:38 Urine Blood 3+ (Negative) H 07/03/23 19:38 Urine Nitrate Positive (Negative) H 07/03/23 19:38 Urine Bilirubin 1+ (Negative) H 07/03/23 19:38 Urine Urobilinogen 1 mg/dL (Negative) H 07/03/23 19:38 Ur Leukocyte Esterase 2+ (Negative) H 07/03/23 19:38 Urine RBC 80-100 /hpf (0-2) H 07/03/23 19:38 Urine WBC 55-80 /hpf (0-5) H 07/03/23 19:38 Ur Squamous Epith Cells 0-4 /hpf (0-5) H 07/03/23 19:38 Amorphous Sediment Not Reportable 07/03/23 19:38 Urine Bacteria 1+ /hpf (NONE) H 07/03/23 19:38 Urine Mucus 1+ /hpf 07/03/23 19:38 Vitals Last Vital Signs Temp 98.1 F 07/07/23 08:00 Pulse 71 07/07/23 08:00 Resp 18 07/07/23 08:00 BP 110/61 07/07/23 08:00 Pulse Ox 93 07/07/23 08:00 O2 Del Method Room Air 07/07/23 08:00 O2 Flow Rate 3 07/06/23 09:04 Discharge Plan Discharge Patient Disposition: Home Condition: Stable Prescriptions: New cefpodoxime 200 mg tablet 200 mg PO BID Qty: 20 0RF Rx Instructions: must administer with a meal/food Continued acetaminophen 500 mg capsule 500 mg PO Q4H PRN (Reason: Pain) albuterol sulfate 90 mcg/actuation HFA aerosol inhaler 1 puff inhalation Q4H PRN (Reason: Shortness Of Breath) baclofen 10 mg tablet 10 mg PO TID diclofenac sodium [Arthritis Pain (diclofenac)] 1 % gel See Rx Instructions .ROUTE .COMPLEX PRN (Reason: Pain) Rx Instructions: Applly 2 grams topically as needed to left knee,and left shoulder as needed per shift. bisacodyl [Dulcolax (bisacodyl)] 5 mg tablet,delayed release (DR/EC) 5 mg PO Q3D PRN (Reason: Constipation) Eliquis 5 mg tablet 5 mg PO BID hydrocodone-acetaminophen 5-325 mg tablet 0.5 tab PO Q4H PRN (Reason: Pain, Severe) naloxone 0.4 mg/mL solution 0.4 mg SUBCUT Q2M PRN (Reason: Opioid Overdose) Rx Instructions: NTExceed 10 mg total dose/episode levothyroxine 125 mcg capsule 125 mcg PO DAILY magnesium hydroxide [Milk of Magnesia] 400 mg/5 mL suspension 15 ml PO DAILY gabapentin 600 mg tablet 600 mg PO BEDTIME gabapentin 300 mg Capsule 300 mg PO BID furosemide [Lasix] 20 mg Tablet 20 mg PO DAILY potassium chloride 10 mEq Tablet Extended Release 10 meq PO DAILY tramadol 50 mg Tablet 100 mg PO Q6H PRN (Reason: Pain) ondansetron HCl 4 mg tablet 4 mg PO Q6H PRN (Reason: nausea/vomiting) Pyridium 100 mg Tablet 100 mg PO BID Banophen 25 mg capsule 25 mg PO BEDTIME Fleet Enema 19-7 gram/118 mL Enema See Rx Instructions .ROUTE .COMPLEX PRN (Reason: Constipation) Rx Instructions: 118 mL rectally once daily as needed if no results from milk of magnesia and dulcolax Tears Naturale Drops 1 drp OPHTHALMIC (EYE) TID Thera M Tablet 1 tab PO QAM nystatin 100,000 unit/gram powder 1 applic TOPICAL BID PRN (Reason: redness) Discontinued ciprofloxacin HCl 500 mg tablet 500 mg PO Q12H Qty: 20 0RF diclofenac sodium 25 mg tablet,delayed release (DR/EC) 25 mg PO Q6H PRN (Reason: pain/inflamation) Discharge Orders: Discharge Order (Routine); Ordered 07/07/23 Ordered By: Samir Cason Referrals: Eladio Domingo [Referring] - 7-10 days Fitz Solis DO [Primary Care Provider] - Patient Instructions: Opioid Safety Discharge Attestations Time Spent in Discharge Care*: greater than 30 min Quality Metrics Clinical Quality Measures [ No reported AMI, CVA or VTE this stay] Coding Level of Care Code Acute Code for Chg Fwd Diagnoses History of kidney stones Z87.442 Cystitis cystica N30.80 Urinary tract infection N30.01 Hematuria presence: with hematuria Urinary tract infection type: acute cystitis Remote history of stroke Z86.73 Acute alteration in mental status R41.82 Fever R50.9 Fever type: unspecified
[2023-07-07] MEDS: aztreonam 2,000 MG in sodium chloride 0.9% (plus) 100 ML 200 MG IV (11:25)
[2023-07-07 12:17] LABS: SARS Covid-2 Antigen negative (Negative)
== END 2023-07-07 17:06 | disposition skilled nursing facility (03) | DRG 689 ==
LOC: ER 20:50 → MEDSURG 21:14
PROVIDERS: Admitting Provider Internal Medicine; Emergency Provider Emergency Medicine; PCP Internal Medicine; Visit Provider Internal Medicine
DX: N30.01 Acute cystitis with hematuria (principal); G93.41 Metabolic encephalopathy; I50.33 Acute on chronic diastolic (congestive) heart failure; I69.354 Hemiplegia and hemiparesis following cerebral infarction affecting left non-dominant side; N30.81 Other cystitis with hematuria; Z88.0 Allergy status to penicillin; Z87.442 Personal history of urinary calculi; E83.42 Hypomagnesemia; Z86.718 Personal history of other venous thrombosis and embolism; E03.9 Hypothyroidism, unspecified; E66.9 Obesity, unspecified; Z68.34 Body mass index [BMI] 34.0-34.9, adult; N18.30 Chronic kidney disease, stage 3 unspecified; I73.9 Peripheral vascular disease, unspecified; I25.10 Atherosclerotic heart disease of native coronary artery without angina pectoris; M79.7 Fibromyalgia; G62.9 Polyneuropathy, unspecified; G89.29 Other chronic pain
CPT/HCPCS: 36415; 71045; 80048; 80053; 81001; 83605; 83735; 84146; 84443; 85025; 85610; 87040; 87077; 87086; 87150; 87186; 87205; 87426; 93005; 96374; 99285; J0696; J0744; J1940; J3475; J3490; J7030; Q0162

== ENCOUNTER 2023-07-18 13:36 | Outpatient (CLI) | payer MEDICARE, MEDICAID, SELFPAY ==
--- NOTE | 2023-07-18 13:47 | US_ITS ---
WS: [id number] RENAL ULTRASOUND HISTORY: RIGHT RENAL STONE COMPARISON: CT abdomen 12/31/2021 Technically difficult evaluation. Difficult due to body habitus and imaging performed with the patien t in the wheelchair. TECHNIQUE: 2-D and color Doppler imaging of the kidney submitted. Right kidney: 8.9 cm x 5.5 cm x 6.5 cm. Cortex: 1.0 cm Mild renal atrophy similar to 12/31/2021 CT. Simple cyst lower pole measures 1.3 x 1.1 x 2.3 cm. Cyst was not identified on the prior CT. No solid mass or obstruction. Increased sinus fat. Left kidney: 8.9 cm x 4.8 cm x 4.9 cm. Cortex: 1.1 cm Kidneys measuring smaller as compared to the CT of 12/31/2021 but this is probably due to difficulty v isualizing the entire kidney. A mass would be difficult to exclude. There is no hydronephrosis. Aorta: Normal. Urinary Bladder: Minimally distended. IMPRESSION: 1. Technically difficult evaluation of the kidneys. 2. Mild RIGHT renal atrophy without hydronephrosis. 3. Small cyst lower pole RIGHT kidney is new measuring 1.3 x 1.1 x 2.3 cm. 4. Poorly visualized LEFT kidney. The entire kidney is not visualized well. No obstruction.
--- NOTE | 2023-07-18 13:48 | XRR_ITS ---
PROCEDURE INFORMATION: Exam: XR Abdomen Exam date and time: 07/18/2023 2:13 PM Age: 73 years old Clinical indication: Condition or disease; Kidney or ureter condition; Calculus (stone) in kidney; Prior surgery; Surgery date: 6+ months; Surgery type: Gastroplasty, cists, gallbladder, ureter stints; Additional info: R renal stone, PT having US too TECHNIQUE: Imaging protocol: Radiologic exam of the abdomen. Views: Frontal supine view of the abdomen. 1 View. COMPARISON: CT abdomen pelvis con [id number] 05/04/2023 1:32 PM FINDINGS: Gastrointestinal tract: Nonobstructive bowel gas pattern. No evidence of free air or pneumatosis. No convincing evidence of radiopaque stone. The right kidney is partially obscured by stool in the ascending colon. Moderate-large stool burden. Bones/joints: No evidence of acute osseous abnormality. Evaluation of both hips is limited by patient positioning. Correlation with dedicated hip radiographs may be helpful if clinically warranted. Bony demineralization compatible with osteopenia or osteoporosis. XR/XR KUB [id number] IMPRESSION: 1. Moderate-large stool burden. 2. No convincing evidence of radiopaque renal stone.If there is ongoing clinical concern, consider correlation with noncontrast CT. 3. Evaluation of both hips is limited by patient positioning. Correlation with dedicated hip radiographs may be helpful if clinically warranted. 4. Bony demineralization compatible with osteopenia or osteoporosis.
== END 2023-07-18 13:37 | disposition home or self-care (01) ==
LOC: RAD 13:36
PROVIDERS: PCP Internal Medicine; Visit Provider Urology
DX: N20.0 Calculus of kidney (principal); K59.00 Constipation, unspecified; Z98.890 Other specified postprocedural states; N26.1 Atrophy of kidney (terminal); N28.1 Cyst of kidney, acquired
CPT/HCPCS: 74018; 76770

== ENCOUNTER 2024-02-22 14:05 | Outpatient (CLI) | payer MEDICARE, MEDICAID, SELFPAY ==
--- NOTE | 2024-02-22 14:10 | CT_ITS ---
WS: [id number] CT ABDOMEN AND PELVIS NONCONTRAST HISTORY: RENAL CYST TECHNIQUE: Imaging performed through the abdomen and pelvis. Coronal and sagittal reformats are submi tted. All CT scans at [facility] use at least one of these dose optimization techniques: auto mated exposure control; mA and/or kV adjustment per patient size (includes targeted exams where dose is matched to clinical indication); or iterative reconstruction. DLP: 828.66 mGy.cm COMPARISON: Ultrasound 07/18/2023, prior CT 05/04/2023 Lower thorax: Small hiatal hernia. Otherwise negative. Liver: Mildly enlarged liver measuring 17.3 cm at its long axis. No bile duct dilatation. Caudate lob e is enlarged. Gallbladder: Prior cholecystectomy. Pancreas: Mild diffuse fatty replacement. Spleen: Normal. Adrenal glands: Normal. No mass. Right kidney: Mild perinephric stranding. Mild dilatation of the renal pelvis and RIGHT ureter. No ob structing stone is identified along the course of the ureter. The distal ureter becomes small caliber knee contain a stricture. On a prior CT there was a ureteral stent in position. There is diffuse cor tical thinning. Cortical hypodensity is probably the previously described cyst which cannot be furthe r evaluated on this noncontrast exam. There are nonobstructing calcifications. Left kidney: Normal size kidney with no mass or hydronephrosis. Aorta: Mild atherosclerosis abdominal aorta with no aneurysm. No free fluid, intraperitoneal air or significant lymphadenopathy. Central mesenteric hazy attenuatio n. GI tract: Postsurgical changes at the GE junction. No small bowel obstruction. Diffuse constipation i s moderate. Abdominal wall: Abdominal wall rectus diastases. Pelvis: Well-distended urinary bladder. No stones. Soft tissue edema. Osseous structures: Diffuse osteopenia. CT/CT abdomen pelvis wo con [id number] IMPRESSION: 1. Mild RIGHT hydroureteronephrosis with RIGHT perinephric stranding and corti royal thinning. New since 05/04/2023. 2. No ureteral stone identified but there is thinning and luminal narrowing of the distal ureter which may represent an inflammatory stricture. Ureteral abno rmality has been previously described. 3. No ascites or free air. 4. Diffuse constipation. 5. Nonobstructing RIGHT renal calcifications.
== END 2024-02-22 14:06 | disposition home or self-care (01) ==
LOC: RAD 14:06
PROVIDERS: PCP Internal Medicine; Visit Provider Nurse Practitioner Family
DX: N28.1 Cyst of kidney, acquired (principal); N20.0 Calculus of kidney; N13.5 Crossing vessel and stricture of ureter without hydronephrosis; K59.00 Constipation, unspecified
CPT/HCPCS: 74176

== ENCOUNTER → 2024-04-09 15:55 | Outpatient (BNVA) | payer MEDICARE, MEDICAID, SELFPAY | PROVIDERS: PCP Internal Medicine; Visit Provider Podiatrist Foot & Ankle Surgery | DX: L60.3 Nail dystrophy (principal); L60.0 Ingrowing nail; I63.9 Cerebral infarction, unspecified; G62.9 Polyneuropathy, unspecified; I73.9 Peripheral vascular disease, unspecified | CPT/HCPCS: 11721; 99203 ==

== ENCOUNTER → 2024-07-02 15:53 | Outpatient (BNVA) | payer MEDICARE, MEDICAID, SELFPAY | PROVIDERS: PCP Internal Medicine; Visit Provider Podiatrist Foot & Ankle Surgery | DX: I73.9 Peripheral vascular disease, unspecified (principal); L60.3 Nail dystrophy; L60.0 Ingrowing nail; I63.9 Cerebral infarction, unspecified; G62.9 Polyneuropathy, unspecified | CPT/HCPCS: 11721 ==

== ENCOUNTER → 2024-08-30 15:00 | Outpatient (BNVA) | payer MEDICARE, MEDICAID, SELFPAY | PROVIDERS: PCP Internal Medicine; Visit Provider Podiatrist Foot & Ankle Surgery | DX: I73.9 Peripheral vascular disease, unspecified (principal); L60.3 Nail dystrophy; L60.0 Ingrowing nail; I63.9 Cerebral infarction, unspecified; G62.9 Polyneuropathy, unspecified | CPT/HCPCS: 11721; 99213 ==

== ENCOUNTER → 2024-11-01 13:23 | Outpatient (BNVA) | payer MEDICARE, MEDICAID, SELFPAY | PROVIDERS: PCP Internal Medicine; Visit Provider Podiatrist Foot & Ankle Surgery | DX: I73.9 Peripheral vascular disease, unspecified (principal); L60.3 Nail dystrophy; I63.9 Cerebral infarction, unspecified; G62.9 Polyneuropathy, unspecified | CPT/HCPCS: 11721 ==

== ENCOUNTER → 2025-01-16 14:50 | Outpatient (BNVA) | payer MEDICARE, MEDICAID, SELFPAY | PROVIDERS: PCP Internal Medicine; Visit Provider Podiatrist Foot & Ankle Surgery | DX: E11.8 Type 2 diabetes mellitus with unspecified complications (principal); L60.3 Nail dystrophy; I63.9 Cerebral infarction, unspecified; G62.9 Polyneuropathy, unspecified; I73.9 Peripheral vascular disease, unspecified | CPT/HCPCS: 11721 ==

== ENCOUNTER → 2025-03-27 14:18 | Outpatient (BNVA) | payer MEDICARE, MEDICAID, SELFPAY | PROVIDERS: PCP Internal Medicine; Visit Provider Podiatrist Foot & Ankle Surgery | DX: E11.8 Type 2 diabetes mellitus with unspecified complications (principal); L60.3 Nail dystrophy; I63.9 Cerebral infarction, unspecified; G62.9 Polyneuropathy, unspecified; I73.9 Peripheral vascular disease, unspecified | CPT/HCPCS: 11721 ==